=== PATIENT | male | born 1940 | race Caucasian/White ===

== ENCOUNTER 2018-09-21 00:14 | Day surgery (SDC) | payer MEDICARE ==
[~2018-09-21 00:14] MED LIST: ALBU90OI6; ASPI81CH PO; Advair Hfa 115-12 GM; COMBIVENT RESPIM4 GM; Cephalexin500 MG PO; ENTRESTO 24 MG1 EACH PO; FLUSAL1005; FURO40 PO; GUAIFENESIN1200 MG PO; K-Tab10 MEQ PO; METO25ER PO; MUCUS RELIEF C400 MG; Prednisone20 MG PO; Prinivil10 MG; Prinivil10 MG PO; SPIR25 PO; TRAM50; Xolair150 MG
[2018-09-21] MEDS ORDERED: ALBU90OI61 INH (10:02)
[2018-09-21] MEDS ORDERED: Lisinopril2.5 MG PO (10:03)
[2018-09-21] MEDS ORDERED: TORSE20 PO (10:04)
[2018-09-21] MEDS ORDERED: TIOT18 INH (10:04)
== END 2018-09-21 10:23 | disposition home or self-care (01) ==
LOC: ATC 00:14
DX: J45.909 Unspecified asthma, uncomplicated (principal); Z87.891 Personal history of nicotine dependence; Z88.1 Allergy status to other antibiotic agents; Z91.041 Radiographic dye allergy status; Z88.8 Allergy status to other drugs, medicaments and biological substances; Z88.0 Allergy status to penicillin
CPT/HCPCS: 96372; J2357

== ENCOUNTER 2018-12-14 00:19 | Day surgery (SDC) | payer MEDICARE ==
[~2018-12-14 00:19] MED LIST changes: +ALBU90OI61 INH; +Lisinopril2.5 MG PO; +TIOT18 INH; +TORSE20 PO
== END 2018-12-14 08:30 | disposition home or self-care (01) ==
LOC: ATC 00:19
DX: J45.909 Unspecified asthma, uncomplicated (principal); Z87.891 Personal history of nicotine dependence; Z88.1 Allergy status to other antibiotic agents; Z88.8 Allergy status to other drugs, medicaments and biological substances; Z91.041 Radiographic dye allergy status
CPT/HCPCS: 96372; J2357

== ENCOUNTER 2019-01-11 00:04 | Day surgery (SDC) | payer MEDICARE ==
[~2019-01-11 00:04] MED LIST changes: -ALBU90OI61 INH; -ASPI81CH PO; +Advair Hfa 115-12 GM INH; -FLUSAL1005; +LISI5 PO; -Lisinopril2.5 MG PO; -TIOT18 INH
== END 2019-01-11 08:28 | disposition home or self-care (01) ==
LOC: ATC 00:04
DX: J45.909 Unspecified asthma, uncomplicated (principal); Z88.8 Allergy status to other drugs, medicaments and biological substances; Z88.1 Allergy status to other antibiotic agents; Z79.899 Other long term (current) drug therapy
CPT/HCPCS: 96372; J2357

== ENCOUNTER → 2019-01-27 | Outpatient (CLI) | payer MEDICARE ==
[~2019-01-27] MED LIST changes: +ALBU90OI61 INH; +Aspir 8181 MG PO; +PRED20 PO; +SPIRIVA RESPIMAT4 GM INH; +TRAM50 PO; +TYLENOL PM PO
[2019-01-27 17:11] LABS: U Amphetamine Screen Not Detected; U Barbituate Screen Not Detected; U Benzodiazapine Screen Not Detected; U Buprenorphine Screen Not Detected; U Cannabinoids Screen Not Detected; U Cocaine Screen Not Detected; U Methadone Screen Not Detected; U Methamphetamine Screen Not Detected; U Opiates Screen DETECTED; U Oxycodone Screen Not Detected; U Phencyclidine Screen Not Detected; U Propoxyphene Screen Not Detected
== END | disposition home or self-care (01) ==
LOC: LAB SHORT 14:52 → LAB 14:52
PROVIDERS: Nurse Practitioner Family
DX: Z51.81 Encounter for therapeutic drug level monitoring (principal); Z79.899 Other long term (current) drug therapy

== ENCOUNTER 2019-02-08 00:10 | Day surgery (SDC) | payer MEDICARE ==
[~2019-02-08 00:10] MED LIST changes: -ALBU90OI61 INH; -Aspir 8181 MG PO; -PRED20 PO; -SPIRIVA RESPIMAT4 GM INH; -TRAM50 PO; -TYLENOL PM PO
[2019-02-08] MEDS ORDERED: PRED20 PO (07:50)
== END 2019-02-08 08:10 | disposition home or self-care (01) ==
LOC: ATC 00:10
DX: J45.909 Unspecified asthma, uncomplicated (principal); Z87.891 Personal history of nicotine dependence; Z88.1 Allergy status to other antibiotic agents; Z88.8 Allergy status to other drugs, medicaments and biological substances
CPT/HCPCS: 96372; J2357

== ENCOUNTER 2019-03-10 00:23 | Day surgery (SDC) | payer MEDICARE ==
[~2019-03-10 00:23] MED LIST changes: +PRED20 PO
== END 2019-03-10 09:12 | disposition home or self-care (01) ==
LOC: ATC 00:23
DX: J45.909 Unspecified asthma, uncomplicated (principal); Z87.891 Personal history of nicotine dependence; Z88.1 Allergy status to other antibiotic agents; Z91.041 Radiographic dye allergy status; Z88.8 Allergy status to other drugs, medicaments and biological substances; Z88.0 Allergy status to penicillin
CPT/HCPCS: 96372; J2357

== ENCOUNTER 2019-03-20 10:18 | Observation (INO) | payer MEDICARE ==
[~2019-03-20] VITALS: Ht 180.3 cm; Wt 78.9 kg
[2019-03-20 11:21] LABS: BASOPHILS ABSOLUTE AUTO 0.06 K/mm3 (0.00-0.23); BASOPHILS PERCENT AUTO 1 % (0-2); EOSINOPHILS ABSOLUTE AUTO 0.63 K/mm3 (0.00-0.68); EOSINOPHILS PERCENT AUTO 6 % (0-6); Hemoglobin 15.2 g/dL (13.5-17.5); IMMATURE GRAN ABSOLUTE AUTO 0.03 K/mm3 (0.00-0.10); IMMATURE GRAN PERCENT AUTO 0 % (0-1); LYMPHOCYTES ABSOLUTE AUTO 0.95 K/mm3 (0.84-5.20); LYMPHOCYTES PERCENT AUTO 9 % (21-46); MONOCYTES ABSOLUTE AUTO 1.08 K/mm3 (0.16-1.47); MONOCYTES PERCENT AUTO 11 % (4-13); Mean Corpuscular HGB 29.3 pg (26.0-34.0); Mean Corpuscular Volume 95 fL (80-100); Mean Platelet Volume 12.2 fL (9.1-12.4); NEUTROPHILS ABSOLUTE AUTO 7.45 K/mm3 (1.96-9.15); NEUTROPHILS PERCENT AUTO 73 % (41-73); Platelet Count 224 K/mm3 (150-400); RDW Coefficient Variation 14.6 % (11.7-14.2); RDW Standard Deviation 51.1 fL (35.1-46.3); Red Blood Cell Count 5.18 M/mm3 (4.30-5.90)
[2019-03-20 11:37] LABS: Albumin, Blood 3.7 g/dL (3.4-5.0); Bilirubin, Total 0.4 mg/dL (0.1-1.0); Bun/Creatinine Ratio 20.4 (12.0-20.0); Calcium, Blood 8.9 mg/dL (8.5-10.1); Creatinine, Blood 1.86 mg/dL (0.60-1.20); Globulin, Blood 3.6 g/dL (2.2-4.0); Magnesium, Blood 2.3 mg/dL (1.6-2.4); Potassium, Blood 4.2 mmol/L (3.5-5.5); Total Protein, Blood 7.3 g/dL (6.4-8.2); Troponin I 0.137 ng/mL (0.000-0.040)
[2019-03-20 11:40] LABS: Thyroid Stimulating Hormone 3.93 uIU/mL (0.360-4.800)
[2019-03-20] MEDS ORDERED: TRAM50 PO (12:31)
[2019-03-20] MEDS ORDERED: Aspir 8181 MG PO (12:31)
[2019-03-20] MEDS ORDERED: ALBU90OI61 INH (12:31)
[2019-03-20] MEDS ORDERED: SPIRIVA RESPIMAT4 GM INH (12:33)
--- NOTE | 2019-03-20 12:40 | NUR ---
PT NEW ADMISSION FROM ER. THIRD DEGREE HB NOTED WITH HR IN 20S-30S. EXTERNAL PACER PADS IN PLACE BUT NOT PACING DUE TO ASYMPTOMATIC. PT STATES HE FEELS FINE LONG HE DOESN'T TRY TO MOVE OUT OF BED. AT BEDSIDE.
[2019-03-20 13:20] LABS: International Normalized Ratio 0.97; Prothrombin Time Results 10.3 Sec (9.7-11.5)
--- NOTE | 2019-03-20 13:34 | NUR ---
DR STACY CAME TO SEE PT AND EDUCATED ABOUT PACE MAKER PLACEMENT. PT COMNTIUES TO BE ASYMPTOMATIC WITH HR PRESENTLY AT 28. EXTERNAL PACER PADS ON BUT NOT PACING. DR STACY INSTRUCTS TO NOT PACE UNLESS HEMODYNAMICALLY UNSTABLE. ALSO INSTRUCTS TO HAVE DOPAMINE AVAILABLE AT BEDSIDE. PHARMACY AWARE. DISCUSSED CONSENT WITH PT AND HIS . DENIES FURTHER NEEDS
--- NOTE | 2019-03-20 15:55 | NUR ---
PT REMAINS ASYMPOTOMATIC. ECTOPY NOTED AT 1548. CERTIFIED TECHNICIAN SPECIALIST AWARE. CALL TO [facility]ART CENTER FOR TIMING, STATED THEY WERE PREPPING THE TABLE. PT'S AT BEDSIDE, AWARE.
--- NOTE | 2019-03-20 16:19 | NUR ---
PT TAKEN TO HEART CENTER AT THIS TIME. SPOUSE AWARE
--- NOTE | 2019-03-20 19:00 | NUR ---
PT RETURNED FROM [facility]. DRESSING TO LEFT CHEST, HR IN 60S, PACER SPIKES NOTED. PT'S SAW PT WHEN HE RETURNED TO ROOM AND THEN WENT BACK HOME. NIGHT RN AT BEDSIDE
[2019-03-20] MEDS ORDERED: TYLENOL PM PO (20:21)
--- NOTE | 2019-03-20 20:33 | NUR ---
PATIENT BACK FROM COAGULATING BATH MIXER AT APROX 1920 PLACED ON ICU MONITORING, SHOWING 100% PACED. PCU STATUS POST PACEMAKER PLACEMENT. PATIENT C/O PAIN TO HIS UPPER BACK/NECK AREA CHRONIC IN NATURE. SURGICAL SITE TO LEFT CHEST WITH DRESSING CD&I, SLIGHTLY SWOLLEN, ICE PACK PLACED OVER SITE. HEATING PAD PLACED TO UPPER BACK. DOCTOR ROXI CALLED FOR PATIENT ROUTINE HS MEDICATIONS INCLUDING TRAMADOL FOR PAIN. SEE NEW ORDERS. PATIENT REQUESTING SOMETHING TO EAT, TORRIE PO WITHOUT DIFFICULTY.
--- NOTE | 2019-03-21 00:43 | NUR ---
PATIENT AWAKE C/O INCREASED PAIN TO HIS LEFT SHOULDER AND INCISION AREA. SITE HAS BRUISING AROUND SITE. SWELLING TO AREA REMAINS UNCHANGED. AREA SOFT BUT TENDER TO TOUCH. PATIENT VERBALIZED THAT THE PAIN IS INCREASED WITH THE ICE PACK. DOCTOR STACY NOTIFIED AND ORDER OBTAINED FOR FENTANYL IV PRN AND TO CONTINUE TRAMADOL ORDERED.
--- NOTE | 2019-03-21 06:09 | NUR ---
SUMMARY PATIENT SLEEPING OFF AND ON T/O THE NIGHT. AWAKENS TO SLIGHT STIMULI. LEFT ARM REMAINS IN IMMOBILIZER TO REMIND PATIENT TO NOT LIFT ARM AND ALSO TO GIVE SUPPORT WHEN UP AND MOVING. PATIENT CONTINUES TO HAVE PAIN TO LEFT SHOULDER AND CHEST, AREA AROUND INCISION IS SWOLLEN AND BRUISED, BUT SOFT. SLIGHT RED OOZING CONTAINED IN DRESSING. ICE OFF AND ON T/O THE NIGHT, PATIENT VERBALIZED THAT THE ICE INCREASED THE PAIN TO INCISION SITE. MONITOR SHOWING PACED RHYTHM WITH OCCASIONAL PVC AND OCCASIONAL SINUS WITH WIDE QRS HX OF RIGHT BBB. PATIENT SLIGHT SOB WITH AUDIBLE WHEEZING HEARD AFTER PATIENT AMBULATING IN ROOM AFTER CHEST X-RAY.
--- NOTE | 2019-03-21 07:30 | NUR ---
ASSUMED CARE: PT SITTING UPRIGHT IN CHAIR. LEFT ARM IN IMMOBILIZER. HR 60S, 100% VENTRICULAR PACING NOTED WITH SOME ATRIAL PACING. PACER SITE WITH SOME BLOOD ON DRESSING NOTED. BRUISING NOTED TO LEFT SIDE OF SITE, TENDERNESS WELL. DENIES OTHER NEEDS OR CONCERNS AT THIS TIME.
--- NOTE | 2019-03-21 11:03 | NUR ---
IV'S DC'D WNL. PT GIVEN DC INSTRUCTIONS FROM DR ALFONSO, DR STACY, HEART CENTER STAFF AND THIS RN. [employer] REP INTERROGATED PACER AND CXR HAS BEEN REVIEWED BY [facility]. DISCUSSED DC INSTRUCTIONS WITH PT WITH HANDOUTS PROVIDED. AMBULATORY UPON DC. DENIED FURTHER QUESTIONS OR CONCERNS.
== END 2019-03-21 10:57 | disposition home or self-care (01) ==
LOC: ER 10:18 → ICUW 10:19
PROVIDERS: Emergency Medicine; Internal Medicine Cardiovascular Disease; ADMIT Internal Medicine
DX: I44.2 Atrioventricular block, complete (principal); I25.10 Atherosclerotic heart disease of native coronary artery without angina pectoris; I12.9 Hypertensive chronic kidney disease with stage 1 through stage 4 chronic kidney disease, or unspecified chronic kidney disease; N18.9 Chronic kidney disease, unspecified; E78.5 Hyperlipidemia, unspecified; J44.9 Chronic obstructive pulmonary disease, unspecified; Z95.1 Presence of aortocoronary bypass graft; Z87.891 Personal history of nicotine dependence; Z88.1 Allergy status to other antibiotic agents; Z88.0 Allergy status to penicillin; Z88.8 Allergy status to other drugs, medicaments and biological substances; Z91.09 Other allergy status, other than to drugs and biological substances; Z91.018 Allergy to other foods; Z88.2 Allergy status to sulfonamides; Z79.899 Other long term (current) drug therapy; Z79.51 Long term (current) use of inhaled steroids; Z79.82 Long term (current) use of aspirin; Z79.52 Long term (current) use of systemic steroids
CPT/HCPCS: 33208; 36415; 71045; 71046; 80053; 83735; 84443; 84484; 85025; 85610; 86850; 86900; 86901; 87081; 93005; 93010; 94640; 94760; 96365; 96366; 96375; 99152; 99153; 99285-25; C1769; C1785; C1898; G0378; J0461; J1265; J1644; J2250; J3010; J3370; J7030; J7040

== ENCOUNTER 2019-04-05 00:08 | Day surgery (SDC) | payer MEDICARE ==
[~2019-04-05 00:08] MED LIST changes: +ALBU90OI61 INH; +Aspir 8181 MG PO; +SPIRIVA RESPIMAT4 GM INH; +TRAM50 PO; +TYLENOL PM PO
== END 2019-04-05 08:14 | disposition home or self-care (01) ==
LOC: ATC 00:08
DX: J45.909 Unspecified asthma, uncomplicated (principal); Z87.891 Personal history of nicotine dependence; Z79.899 Other long term (current) drug therapy; Z91.09 Other allergy status, other than to drugs and biological substances; Z88.1 Allergy status to other antibiotic agents; Z88.8 Allergy status to other drugs, medicaments and biological substances
CPT/HCPCS: 96372; J2357

== ENCOUNTER 2019-05-31 00:17 | Day surgery (SDC) | payer MEDICARE | END 2019-05-31 08:29 | disposition home or self-care (01) | LOC: ATC 00:17 | DX: J45.909 Unspecified asthma, uncomplicated (principal); I25.10 Atherosclerotic heart disease of native coronary artery without angina pectoris; I25.5 Ischemic cardiomyopathy; N18.3 Chronic kidney disease, stage 3 (moderate); E78.5 Hyperlipidemia, unspecified; Z87.891 Personal history of nicotine dependence; Z79.51 Long term (current) use of inhaled steroids; Z79.899 Other long term (current) drug therapy; Z88.1 Allergy status to other antibiotic agents; Z88.8 Allergy status to other drugs, medicaments and biological substances; Z91.041 Radiographic dye allergy status; Z91.018 Allergy to other foods; Z85.46 Personal history of malignant neoplasm of prostate; Z95.0 Presence of cardiac pacemaker; Z95.1 Presence of aortocoronary bypass graft; Z98.1 Arthrodesis status | CPT/HCPCS: 96372; J2357 ==

== ENCOUNTER 2019-06-28 00:15 | Day surgery (SDC) | payer MEDICARE | END 2019-06-28 08:20 | disposition home or self-care (01) | LOC: ATC 00:15 | DX: J45.909 Unspecified asthma, uncomplicated (principal); Z87.891 Personal history of nicotine dependence; Z79.51 Long term (current) use of inhaled steroids; Z79.899 Other long term (current) drug therapy; Z88.1 Allergy status to other antibiotic agents; Z88.8 Allergy status to other drugs, medicaments and biological substances; Z91.041 Radiographic dye allergy status; Z91.018 Allergy to other foods | CPT/HCPCS: 96372; J2357 ==

== ENCOUNTER 2019-07-26 00:10 | Day surgery (SDC) | payer MEDICARE | END 2019-07-26 07:59 | disposition home or self-care (01) | LOC: ATC 00:10 | DX: J45.909 Unspecified asthma, uncomplicated (principal); Z87.891 Personal history of nicotine dependence; Z79.51 Long term (current) use of inhaled steroids; Z79.52 Long term (current) use of systemic steroids; Z79.899 Other long term (current) drug therapy; Z88.1 Allergy status to other antibiotic agents; Z88.2 Allergy status to sulfonamides; Z88.8 Allergy status to other drugs, medicaments and biological substances; Z91.041 Radiographic dye allergy status; Z91.018 Allergy to other foods | CPT/HCPCS: 96372; J2357 ==

== ENCOUNTER 2019-09-20 00:04 | Day surgery (SDC) | payer MEDICARE | END 2019-09-20 08:10 | disposition home or self-care (01) | LOC: ATC 00:04 | DX: J45.909 Unspecified asthma, uncomplicated (principal); Z79.51 Long term (current) use of inhaled steroids; Z87.891 Personal history of nicotine dependence; Z88.0 Allergy status to penicillin; Z88.6 Allergy status to analgesic agent; Z91.041 Radiographic dye allergy status; Z88.8 Allergy status to other drugs, medicaments and biological substances; Z88.2 Allergy status to sulfonamides | CPT/HCPCS: 96372; J2357 ==

== ENCOUNTER 2019-10-18 01:51 | Day surgery (SDC) | payer MEDICARE | END 2019-10-18 08:14 | disposition home or self-care (01) | LOC: ATC 01:51 | DX: J45.909 Unspecified asthma, uncomplicated (principal); Z87.891 Personal history of nicotine dependence; Z88.1 Allergy status to other antibiotic agents; Z91.041 Radiographic dye allergy status | CPT/HCPCS: 96372; J2357 ==

== ENCOUNTER 2019-12-13 00:10 | Day surgery (SDC) | payer MEDICARE, OTHER | END 2019-12-13 11:11 | disposition home or self-care (01) | LOC: ATC 00:10 | DX: J45.909 Unspecified asthma, uncomplicated (principal); Z87.891 Personal history of nicotine dependence; Z88.2 Allergy status to sulfonamides; Z88.8 Allergy status to other drugs, medicaments and biological substances; Z88.1 Allergy status to other antibiotic agents; Z91.041 Radiographic dye allergy status | CPT/HCPCS: 96372; J2357 ==

== ENCOUNTER 2020-04-02 00:20 | Day surgery (SDC) | payer MEDICARE, OTHER ==
[~2020-04-02 00:20] MED LIST changes: +ADVAIR HFA 230-28 GM INH; +ALLO100 PO; +ALLOPURINOL100 M1 PO; -Advair Hfa 115-12 GM INH; +SPIRIVA RESPIMAT4 G3 INH; -SPIRIVA RESPIMAT4 GM INH
== END 2020-04-02 08:19 | disposition home or self-care (01) ==
LOC: ATC 00:20
DX: J45.909 Unspecified asthma, uncomplicated (principal); Z87.891 Personal history of nicotine dependence; Z88.0 Allergy status to penicillin; Z88.2 Allergy status to sulfonamides; Z88.8 Allergy status to other drugs, medicaments and biological substances; Z88.6 Allergy status to analgesic agent; Z88.1 Allergy status to other antibiotic agents; Z91.041 Radiographic dye allergy status
CPT/HCPCS: 96372; J2357

== ENCOUNTER 2020-05-01 00:29 | Day surgery (SDC) | payer MEDICARE, OTHER | END 2020-05-01 08:32 | disposition home or self-care (01) | LOC: ATC 00:29 | DX: J45.909 Unspecified asthma, uncomplicated (principal); I10 Essential (primary) hypertension; Z79.51 Long term (current) use of inhaled steroids; Z79.899 Other long term (current) drug therapy; Z88.1 Allergy status to other antibiotic agents; Z88.2 Allergy status to sulfonamides; Z88.8 Allergy status to other drugs, medicaments and biological substances; Z91.041 Radiographic dye allergy status | CPT/HCPCS: 96372; J2357 ==

== ENCOUNTER 2020-05-29 00:52 | Day surgery (SDC) | payer MEDICARE, OTHER | END 2020-05-29 08:05 | disposition home or self-care (01) | LOC: ATC 00:52 | DX: J45.909 Unspecified asthma, uncomplicated (principal); Z87.891 Personal history of nicotine dependence; Z79.51 Long term (current) use of inhaled steroids; Z79.899 Other long term (current) drug therapy; Z88.0 Allergy status to penicillin; Z88.1 Allergy status to other antibiotic agents; Z88.2 Allergy status to sulfonamides; Z88.8 Allergy status to other drugs, medicaments and biological substances; Z91.041 Radiographic dye allergy status; Z91.018 Allergy to other foods | CPT/HCPCS: 96372; J2357 ==

== ENCOUNTER 2020-06-26 00:11 | Day surgery (SDC) | payer MEDICARE, OTHER | END 2020-06-26 08:13 | disposition home or self-care (01) | LOC: ATC 00:11 | DX: J45.909 Unspecified asthma, uncomplicated (principal); Z87.891 Personal history of nicotine dependence; Z79.51 Long term (current) use of inhaled steroids; Z79.899 Other long term (current) drug therapy; Z88.0 Allergy status to penicillin; Z88.1 Allergy status to other antibiotic agents; Z88.8 Allergy status to other drugs, medicaments and biological substances; Z91.041 Radiographic dye allergy status | CPT/HCPCS: 96372; J2357 ==

== ENCOUNTER 2020-07-24 00:09 | Day surgery (SDC) | payer MEDICARE, OTHER | END 2020-07-24 08:23 | disposition home or self-care (01) | LOC: ATC 00:09 | DX: J45.909 Unspecified asthma, uncomplicated (principal); Z79.51 Long term (current) use of inhaled steroids; F17.220 Nicotine dependence, chewing tobacco, uncomplicated; Z88.1 Allergy status to other antibiotic agents | CPT/HCPCS: 96372; J2357 ==

== ENCOUNTER 2020-08-21 00:04 | Day surgery (SDC) | payer MEDICARE, OTHER | END 2020-08-21 08:32 | disposition home or self-care (01) | LOC: ATC 00:04 | DX: J45.909 Unspecified asthma, uncomplicated (principal); Z79.51 Long term (current) use of inhaled steroids | CPT/HCPCS: 96372; J2357 ==

== ENCOUNTER 2020-09-18 00:02 | Day surgery (SDC) | payer MEDICARE, OTHER | END 2020-09-18 08:09 | disposition home or self-care (01) | LOC: ATC 00:02 | DX: J45.909 Unspecified asthma, uncomplicated (principal); Z79.51 Long term (current) use of inhaled steroids; Z88.1 Allergy status to other antibiotic agents; Z88.0 Allergy status to penicillin; Z88.8 Allergy status to other drugs, medicaments and biological substances | CPT/HCPCS: 96372; J2357 ==

== ENCOUNTER 2020-10-16 00:01 | Day surgery (SDC) | payer MEDICARE, OTHER | END 2020-10-16 08:25 | disposition home or self-care (01) | LOC: ATC 00:01 | DX: J45.909 Unspecified asthma, uncomplicated (principal); M10.9 Gout, unspecified; Z88.0 Allergy status to penicillin; Z88.1 Allergy status to other antibiotic agents; Z88.2 Allergy status to sulfonamides; Z88.8 Allergy status to other drugs, medicaments and biological substances; Z91.041 Radiographic dye allergy status | CPT/HCPCS: 96372; J2357 ==

== ENCOUNTER 2020-11-13 00:49 | Day surgery (SDC) | payer MEDICARE, OTHER | END 2020-11-13 08:13 | disposition home or self-care (01) | LOC: ATC 00:49 | DX: J45.909 Unspecified asthma, uncomplicated (principal); Z88.1 Allergy status to other antibiotic agents; Z88.0 Allergy status to penicillin; Z88.8 Allergy status to other drugs, medicaments and biological substances; Z79.899 Other long term (current) drug therapy | CPT/HCPCS: 96372; J2357 ==

== ENCOUNTER → 2020-11-20 | Outpatient (CLI) | payer MEDICARE, OTHER ==
[~2020-11-20] MED LIST changes: +FLUC200 PO
[2020-11-20 13:29] LABS: Source, Urine Clean Catch
[2020-11-20 15:15] LABS: Appearance, Urine Clear (Clear); Bilirubin, Urine Neg (Neg); Blood, Urine 1+ (Neg); Color, Urine Yellow (P-Yellow); Glucose Qualitative, Urine Neg (Neg); Ketones, Urine Neg (Neg); Leukocyte Esterase, Urine 1+ (Neg); Nitrite, Urine Neg (Neg); Protein, Urine 1+ (Neg); Urobilinogen, Urine NORM (Normal)
[2020-11-20 15:23] LABS: Amorphous Light (0-Heavy); Bacteria Mod /hpf; Granular Casts 0-2 /lpf (0); Squamous Epithelial Cells Rare /hpf (Few)
== END | disposition home or self-care (01) ==
LOC: LAB SHORT 11:45 → LAB 11:45
PROVIDERS: Student in an Organized Health Care Education/Training Program
DX: R31.29 Other microscopic hematuria (principal)
CPT/HCPCS: 81001; 87086

== ENCOUNTER 2020-12-11 04:45 | Day surgery (SDC) | payer MEDICARE, OTHER ==
[~2020-12-11 04:45] MED LIST changes: -FLUC200 PO
[2020-12-11] MEDS ORDERED: FLUC200 PO (13:42)
== END 2020-12-11 13:40 | disposition home or self-care (01) ==
LOC: ATC 04:45
DX: J45.909 Unspecified asthma, uncomplicated (principal); M10.9 Gout, unspecified; Z79.52 Long term (current) use of systemic steroids; Z79.51 Long term (current) use of inhaled steroids; Z88.0 Allergy status to penicillin; Z88.8 Allergy status to other drugs, medicaments and biological substances
CPT/HCPCS: 96372; J2357

== ENCOUNTER 2021-01-08 03:04 | Day surgery (SDC) | payer MEDICARE, OTHER ==
[~2021-01-08 03:04] MED LIST changes: +FLUC200 PO
== END 2021-01-08 08:10 | disposition home or self-care (01) ==
LOC: ATC 03:04
DX: J45.909 Unspecified asthma, uncomplicated (principal); I50.9 Heart failure, unspecified; N18.9 Chronic kidney disease, unspecified; Z88.1 Allergy status to other antibiotic agents; Z88.8 Allergy status to other drugs, medicaments and biological substances; Z77.123 Contact with and (suspected) exposure to radon and other naturally occurring radiation; Z91.041 Radiographic dye allergy status; Z87.891 Personal history of nicotine dependence
CPT/HCPCS: 96372; J2357

== ENCOUNTER 2021-03-05 00:22 | Day surgery (SDC) | payer MEDICARE, OTHER | END 2021-03-05 08:03 | disposition home or self-care (01) | LOC: ATC 00:22 | DX: J45.909 Unspecified asthma, uncomplicated (principal); I25.10 Atherosclerotic heart disease of native coronary artery without angina pectoris; I50.9 Heart failure, unspecified; N18.9 Chronic kidney disease, unspecified; E78.00 Pure hypercholesterolemia, unspecified; M10.9 Gout, unspecified; Z79.52 Long term (current) use of systemic steroids; Z79.51 Long term (current) use of inhaled steroids; Z88.1 Allergy status to other antibiotic agents; Z88.0 Allergy status to penicillin; Z88.8 Allergy status to other drugs, medicaments and biological substances; Z85.46 Personal history of malignant neoplasm of prostate; Z95.1 Presence of aortocoronary bypass graft; Z87.891 Personal history of nicotine dependence | CPT/HCPCS: 96372; J2357 ==

== ENCOUNTER 2021-04-02 00:50 | Day surgery (SDC) | payer MEDICARE, OTHER | END 2021-04-02 08:11 | disposition home or self-care (01) | LOC: ATC 00:50 | DX: J45.909 Unspecified asthma, uncomplicated (principal); I50.9 Heart failure, unspecified; N18.9 Chronic kidney disease, unspecified; I25.10 Atherosclerotic heart disease of native coronary artery without angina pectoris; Z87.891 Personal history of nicotine dependence; Z88.0 Allergy status to penicillin; Z88.8 Allergy status to other drugs, medicaments and biological substances; Z91.041 Radiographic dye allergy status | CPT/HCPCS: 96372; J2357 ==

== ENCOUNTER 2021-04-30 04:22 | Day surgery (SDC) | payer MEDICARE, OTHER | END 2021-04-30 08:05 | disposition home or self-care (01) | LOC: ATC 04:22 | DX: J45.909 Unspecified asthma, uncomplicated (principal); I25.10 Atherosclerotic heart disease of native coronary artery without angina pectoris; I50.9 Heart failure, unspecified; N18.9 Chronic kidney disease, unspecified; Z88.0 Allergy status to penicillin; Z87.891 Personal history of nicotine dependence; Z88.1 Allergy status to other antibiotic agents; Z79.899 Other long term (current) drug therapy | CPT/HCPCS: 96372; J2357 ==

== ENCOUNTER → 2021-05-07 | Outpatient (CLI) | payer MEDICARE, OTHER | LOC: LAB 13:43 → LAB SHORT 13:43 | DX: D48.5 Neoplasm of uncertain behavior of skin (principal); D23.72 Other benign neoplasm of skin of left lower limb, including hip; L22 Diaper dermatitis; Z88.8 Allergy status to other drugs, medicaments and biological substances; Z91.041 Radiographic dye allergy status; Z88.1 Allergy status to other antibiotic agents; Z88.2 Allergy status to sulfonamides; Z91.018 Allergy to other foods | CPT/HCPCS: 88305; 88312 ==

== ENCOUNTER → 2021-06-20 | Outpatient (CLI) | payer MEDICARE, OTHER ==
[2021-06-20 17:38] LABS: Bun/Creatinine Ratio 26.4 (12.0-20.0); Calcium, Blood 9.4 mg/dL (8.5-10.1); Creatinine, Blood 1.74 mg/dL (0.60-1.20); Magnesium, Blood 2.3 mg/dL (1.6-2.4); Potassium, Blood 4.6 mmol/L (3.5-5.5)
[2021-06-20 17:42] LABS: Thyroid Stimulating Hormone 3.22 uIU/mL (0.360-4.800)
== END | disposition home or self-care (01) ==
LOC: LAB 16:49 → LAB SHORT 16:49
PROVIDERS: Internal Medicine Cardiovascular Disease
DX: R06.02 Shortness of breath (principal); I10 Essential (primary) hypertension
CPT/HCPCS: 80048; 83735; 83880; 84443

== ENCOUNTER 2021-07-25 06:52 | Inpatient (IN) | payer OTHER, MEDICARE ==
[~2021-07-25] VITALS: Ht 180.3 cm; Wt 68.7 kg
[2021-07-25 07:14] LABS: BASOPHILS ABSOLUTE AUTO 0.01 K/mm3 (0.00-0.23); BASOPHILS PERCENT AUTO 0 % (0-2); EOSINOPHILS PERCENT AUTO 0 % (0-6); Hematocrit 46.6 % (37.0-53.0); IMMATURE GRAN ABSOLUTE AUTO 0.07 K/mm3 (0.00-0.10); IMMATURE GRAN PERCENT AUTO 1 % (0-1); LYMPHOCYTES PERCENT AUTO 4 % (21-46); MONOCYTES ABSOLUTE AUTO 1.45 K/mm3 (0.16-1.47); MONOCYTES PERCENT AUTO 12 % (4-13); Mean Corpuscular Volume 90 fL (80-100); Mean Platelet Volume 11.6 fL (9.1-12.4); NEUTROPHILS ABSOLUTE AUTO 9.77 K/mm3 (1.96-9.15); NEUTROPHILS PERCENT AUTO 83 % (41-73); NRBC ABSOLUTE 0.04 K/mm3 (0.00-0.02); NRBC Auto 0.3 /100 WBC (0.0-0.2); Platelet Count 347 K/mm3 (150-400); RDW Coefficient Variation 20.8 % (11.7-14.2); RDW Standard Deviation 64.3 fL (35.1-46.3); Red Blood Cell Count 5.19 M/mm3 (4.30-5.90)
[2021-07-25 07:49] LABS: Troponin I 0.033 ng/mL (0.000-0.040)
[2021-07-25 07:53] LABS: Albumin, Blood 3.1 g/dL (3.4-5.0); Albumin/Globulin Ratio 0.7 (0.8-1.8); Bilirubin, Total 1.5 mg/dL (0.1-1.0); Calcium, Blood 9.7 mg/dL (8.5-10.1); Creatinine, Blood 2.37 mg/dL (0.60-1.20); Globulin, Blood 4.4 g/dL (2.2-4.0); Potassium, Blood 6.9 mmol/L (3.5-5.5); Total Protein, Blood 7.5 g/dL (6.4-8.2)
[2021-07-25 08:20] LABS: Influenza A, PCR NEGATIVE (NEGATIVE); Influenza B, PCR NEGATIVE (NEGATIVE); Resp Syncytial Virus, PCR NEGATIVE (NEGATIVE); SARS-Cov-2 (COVID-19) PCR, MMC NEGATIVE (NEGATIVE)
[2021-07-25 09:02] LABS: PCO2 Arterial 24.5 mmHg (35-45); PO2 Arterial 246 mmHg (80-100); pH Blood Arterial 7.42 (7.35-7.45)
[2021-07-25 14:45] LABS: Albumin, Blood 3.2 g/dL (3.4-5.0); Albumin/Globulin Ratio 0.8 (0.8-1.8); Bilirubin, Total 1.9 mg/dL (0.1-1.0); Bun/Creatinine Ratio 37.4 (12.0-20.0); Creatinine, Blood 2.35 mg/dL (0.60-1.20); Potassium, Blood 5.5 mmol/L (3.5-5.5); Total Protein, Blood 7.2 g/dL (6.4-8.2)
--- NOTE | 2021-07-25 17:38 | NUR ---
SHIFT SUMMARY PATIENT IS ALERT AND ORIENTED 3-4X. PATIENT WAS ADMITTED FOR ACUTE RESPIRATORY FAILURE. PATIENT IS ON 4 LITERS OXYGEN. PATIENT IS PLEASENT AND COOPERATIVE WITH CARE. PATIENTS CONTINUOUS BIOX DOES NOT CONSISTANTLY PUT OUT A GOOD READING DUE TO POOR PERFUSION. THIS RN HAS TRIED MULTIPLE FINGERS AND POSITIONS. SPOT CHECKED O2 SHOWS 95 SATS AND ABOVE CONSISTANTLY ON 4LITERS O2. WILL MONITOR UNTIL SHIFT CHANGE.
[2021-07-26 06:11] LABS: Albumin, Blood 3.1 g/dL (3.4-5.0); Albumin/Globulin Ratio 0.8 (0.8-1.8); Bilirubin, Total 3.3 mg/dL (0.1-1.0); Bun/Creatinine Ratio 34.8 (12.0-20.0); Calcium, Blood 9.5 mg/dL (8.5-10.1); Creatinine, Blood 2.93 mg/dL (0.60-1.20); Potassium, Blood 6.2 mmol/L (3.5-5.5); Total Protein, Blood 7.1 g/dL (6.4-8.2)
[2021-07-26 06:51] LABS: BASOPHILS ABSOLUTE AUTO 0.04 K/mm3 (0.00-0.23); BASOPHILS PERCENT AUTO 0 % (0-2); EOSINOPHILS PERCENT AUTO 0 % (0-6); Hematocrit 46.4 % (37.0-53.0); Hemoglobin 13.6 g/dL (13.5-17.5); IMMATURE GRAN ABSOLUTE AUTO 0.26 K/mm3 (0.00-0.10); IMMATURE GRAN PERCENT AUTO 1 % (0-1); LYMPHOCYTES ABSOLUTE AUTO 0.21 K/mm3 (0.84-5.20); LYMPHOCYTES PERCENT AUTO 1 % (21-46); MONOCYTES ABSOLUTE AUTO 1.77 K/mm3 (0.16-1.47); MONOCYTES PERCENT AUTO 8 % (4-13); Mean Corpuscular HGB Conc 29.3 g/dL (31.5-36.5); Mean Corpuscular Volume 92 fL (80-100); NEUTROPHILS ABSOLUTE AUTO 20.41 K/mm3 (1.96-9.15); NEUTROPHILS PERCENT AUTO 90 % (41-73); NRBC ABSOLUTE 0.11 K/mm3 (0.00-0.02); NRBC Auto 0.5 /100 WBC (0.0-0.2); Platelet Count 336 K/mm3 (150-400); RDW Coefficient Variation 21.3 % (11.7-14.2); RDW Standard Deviation 68.5 fL (35.1-46.3); Red Blood Cell Count 5.04 M/mm3 (4.30-5.90); White Blood Cell Count 22.69 K/mm3 (4.00-11.30)
[2021-07-26 07:09] LABS: HBSAG SCREEN Negative (Negative); HEP B CORE AB, TOT Negative (Negative); HEP C VIRUS AB <0.1 (0.0-0.9)
--- NOTE | 2021-07-26 08:00 | NUR ---
SHIFT ASSUMPTION: PATIENT ALERT AND ORIENTED. ABLE TO MOVE ALL EXTREMITIES. SKIN OVERALL VERY DUSKY AND CYANOTIC IN FINGERS AND TOES. PATIENT STATES HE IS NOT FEELING VERY WELL. ON 6L NASAL CANNULA SATING 96%. LUNGS SOUNDING SLIGHTLY COARSE AND DIMINISHED. SINUS RHYTHM WITH HR 80-90'S. BP STABLE. VERY FAINT PULSES. DENIES ABDOMINAL PAIN/NAUSEA ALTHOUGH PATIENT IS DRY HEAVYING AT TIMES. JUST WANTING TO DRINK WATER. BLOOD SUGAR DECREASED THIS AM. D50 GIVEN. SODIUM BICARB GTT INFUSING AT 100 ML/HR. CALL PLACED TO DR. NIETO TO UPDATE. DR. NIETO IN TO ASSESS. EKG AND BLADDER SCAN DONE. BLADDER SCAN SHOWING 212. DR. FALK IN EARLY TO ASSESS PATIENT WELL. TRANSFERS FOR ICU. DR. TIRADO CONSULTED. REPORTED OFF TO ICU NURSE.
--- NOTE | 2021-07-26 08:25 | NUR ---
SHIFT SUMMARY: AOX3. ILL APPEARING, CYANOTIC SKIN TONE, COOL TO THE TOUCH, WITH POOR PURFUSION, FAINT RADIAL AND PEDIAL PULSES. COOL TO THE TOUCH. HAS BEEN UNABLE TO KEEP ANYTHING DOWN ALL NIGHT, VOMIT HAS BEEN SMALL AMOUNTS OF BROWN LIKE BILE, QUESTION AT TIMES OF COFFEE GROUNDS, IF NOT VOMITING HE HAS BEEN DRY HEVING ALL NIGHT. ZOFRAN HAS BEEN GIVEN WITH MINIMAL RELEIF. UNABLE TO GET ORDER FOR ANTI-METICS FROM COACH CLEANER MD. DYSPNIC, NEEDING BREATHING TREATMENTS WITH MINIMAL RELEIF. INCREASE IN THIRST, BLOOD SUGARS WERE CHECKED ONLY TO HAVE TO LOW TO READ. MD NOTIFIED. 1/2 AMP OF DEXTROSE WAS GIVEN, ONLY TO GET THE SAME RESULTS. LAB AND RT BOTH HAD DIFFICULT TIMES DRAWING BLOOD DUE TO POOR PERFUSION. MD NOTIFED AGAIN ASKED FOR HER TO SET EYES ON THE PATIENT HAS HIS LIVER LEVELS HAVE DOUBLED, KIDNEY LABS HAVE WORSEN. POTASSIUM HAS INCREASED. ANION GAP 30. GAVE ANOTHER AMP OF D50 IN ATTEMPT TO GET HIS BLOOD SUGARS UP BUT LAST BLOOD SUGAR WAS IN THE 50'S. CONTINUES TO DRY HEVE WITH BILE. DR. STARKEY STOPPED BY FOR FEW MINUTES SAID SHE WILL PUT IN SOME ORDERS.VS VERY SOFT, INFORMED DAYSHIFT OF SITUATION ALONG WITH CHARGE NURSE INFORMING THAT THE PATIENT NEEDS TO BE TRANSFERRED.
[2021-07-26 08:34] LABS: Base Excess Venous -16.5 mmol/L; PCO2 Venous 28.3 mmHg (38-42); PO2 Venous 51.2 mmHg (38-42); pH Blood Venous 7.21 (7.34-7.37)
[2021-07-26 08:46] LABS: Calcium, Blood 9.2 mg/dL (8.5-10.1); Potassium, Blood 5.9 mmol/L (3.5-5.5)
--- NOTE | 2021-07-26 09:43 | NUR ---
PT ADMITTED TO ICU FROM MED FLOOR AT 0915. DR TIRADO CONSULTED BY DR NIETO, DR TIRADO AWARE PT IS IN UNIT. PT MOANING, DENIES C/O PAIN/SOB/NAUSEA. REQUEST WATER. SATS 93% ON 6L VIA N/C. EXTREMITIES DUSKY, FACE PALE BUT NOT DUSKY. VSS. PT TAKEN DOWN FOR STAT CT OF CHEST/ABD BY MANUAL ARTS TEACHER. BICARB GTT AT 100CC/HR.
[2021-07-26 10:01] LABS: Anti-Xa UFH, PHA Monitoring <0.10 IU/mL; International Normalized Ratio 3.06; Prothrombin Time Results 29.9 Sec (9.7-11.5)
--- NOTE | 2021-07-26 10:11 | NUR ---
PT BACK FROM CT. DR TIRADO AT BEDSIDE. OKAY FOR PT TO HAVE SIPS OF WATER. ECHO AND CARDIOLOGY CONSULTED. PT'S AT BEDSIDE. CERTIFIED SKI PATROLLER PLACING POWERGLIDE. HEPARIN GTT DC'D BY DR TIRADO INR >3. BS HAS DROPPED TO 83, WILL RECHECK IN 1 HR.
--- NOTE | 2021-07-26 11:46 | NUR ---
DIRECT CARE PROFESSIONAL AT BEDSIDE. PT C/O THROAT PAIN 03/21. PT DECLINED FENTANYL, STATING IT MADE HIS PAIN WORSE LAST NIGHT. 0.5MG IV DILAUDID ORDERED AND GIVEN. PT'S GLUCOSE 44 EARLIER, 1 AMP D50 GIVEN, WILL RECHECK SOON. LACTIC ACID 15.5, DR TIRADO NOTIFIED.
--- NOTE | 2021-07-26 12:40 | NUR ---
Echocardiogram completed.
[2021-07-26 16:13] LABS: Source, Urine Foley catheter
[2021-07-26 16:18] LABS: Appearance, Urine Hazy (Clear); Bilirubin, Urine Neg (Neg); Blood, Urine 5+ (Neg); Color, Urine Amber (P-Yellow); Glucose Qualitative, Urine Neg (Neg); Ketones, Urine 1+ (Neg); Leukocyte Esterase, Urine 1+ (Neg); Nitrite, Urine Neg (Neg); Protein, Urine 3+ (Neg); Specific Gravity, Urine 1.025 (1.003-1.022); Urobilinogen, Urine NORM (Normal)
[2021-07-26 16:20] LABS: Amorphous Mod (0-Heavy); Bacteria Mod /hpf; Mucus Light (0-Heavy); Squamous Epithelial Cells Few /hpf (Few)
--- NOTE | 2021-07-26 17:10 | NUR ---
DR FALK CALLED, GIVEN FULL UPDATE. BLADDER SCAN COMPLETED, 80CC. REYES CATH PLACED PER DR FALK, PT TORRIE WELL. DOBUTAMINE AND LEVOPHED STARTED PER DR PEREZ. DOBUTAMINE TITRATED UP TO 2MCG, LEVOPHED TITRATED UP TO 3MCG. BUMEX TO BE GIVEN 2HRS AFTER DOBUTAMINE/LEVOPHED STARTED PER DR FALK; THIS WAS RELAYED TO DR PEREZ. TITRATING FOR A MAP GREATER THAN 65/70. PT HAS REMAINED COMFORTABLE AFTER DILAUDID 1MG EARLIER THIS SHIFT. PT SLEEPING, AWAKENS TO VOICE. SATS 96% ON RA PT PULLED 02 OFF AND IS REFUSING TO WEAR IT AT THIS TIME. PICC LINE PLACED OVER POWERGLIDE W/O DIFF, PT TORRIE PROCEDURE WELL.
--- NOTE | 2021-07-26 19:07 | NUR ---
LEVOPHED/DOBUTAMINE BOTH AT 3MCG. MAP >65. ONLY 15CC U/O. DR FALK UPDATED, ANOTHER 2MG BUMEX IV ORDERED. PT SLEEPING COMFORTABLY. SATS >90% ON 4L VIA N/C.
--- NOTE | 2021-07-26 19:30 | NUR ---
ASSUMED CARE PATIENT LYING IN BED WITH EYES CLOSED. NC IN PLACE @ 2LPM W/ SPO2 IN MID 90'S. FOREHEAD PROBE IN PLACE. REYES PATENT AND DRAINING TO GRAVITY. SODIUM BICARB @ 100ML/HR, LEVOPHED INF @ 3MCG/MIN AND DOBUTAMINE INF @ 3MCG/KG/MIN INTO CAITLIN PICC LINE. 20G IN LT AC SALINE LOCKED. PATIENT TRACKS TO SOUND AND PLEASANTLY GREETS STAFF UPON ENTERING THE ROOM. REPORT COMPLETED W/ DAYSHIFT LARRY.
--- NOTE | 2021-07-27 00:44 | NUR ---
AGITATION PATIENT BECAME AGITATED AND ATTEMPTED TO LEAVE THE BED. THE PATIENT WAS TOLD HE NEEDED TO STAY IN BED FOR SAFETY REASONS AND BECAME MORE AGITATED YELLING AT STAFF STATING "I CAN GET OUT OF THE BED IF I WANT DAMMIT" AND "I DON'T EVEN KNOW WHY I AM HERE, IF I AM GOING TO HERE THEN I SHOULD KNOW WHY". PATIENT WAS EASILY CONSOLED BY STAFF AND HELPED BACK IN BED. ATIVAN 0.5MG IV GIVEN TO PATIENT TO HELP WITH ANXIETY AND AGITATION. PATIENT WAS REORIENTED TO HOSPITAL VISIT AND USE OF CALL LIGHT. BED ALARM SET.
[2021-07-27 03:22] LABS: BASOPHILS ABSOLUTE AUTO 0.05 K/mm3 (0.00-0.23); BASOPHILS PERCENT AUTO 0 % (0-2); EOSINOPHILS PERCENT AUTO 0 % (0-6); Hematocrit 38.9 % (37.0-53.0); Hemoglobin 12.2 g/dL (13.5-17.5); IMMATURE GRAN ABSOLUTE AUTO 0.21 K/mm3 (0.00-0.10); IMMATURE GRAN PERCENT AUTO 1 % (0-1); LYMPHOCYTES ABSOLUTE AUTO 0.03 K/mm3 (0.84-5.20); LYMPHOCYTES PERCENT AUTO 0 % (21-46); MONOCYTES ABSOLUTE AUTO 0.65 K/mm3 (0.16-1.47); MONOCYTES PERCENT AUTO 3 % (4-13); Mean Corpuscular HGB 27.2 pg (26.0-34.0); Mean Corpuscular HGB Conc 31.4 g/dL (31.5-36.5); NEUTROPHILS ABSOLUTE AUTO 24.63 K/mm3 (1.96-9.15); NEUTROPHILS PERCENT AUTO 96 % (41-73); NRBC ABSOLUTE 0.23 K/mm3 (0.00-0.02); NRBC Auto 0.9 /100 WBC (0.0-0.2); Platelet Count 236 K/mm3 (150-400); RDW Coefficient Variation 20.2 % (11.7-14.2); RDW Standard Deviation 61.1 fL (35.1-46.3); Red Blood Cell Count 4.49 M/mm3 (4.30-5.90); White Blood Cell Count 25.57 K/mm3 (4.00-11.30)
[2021-07-27 03:26] LABS: Mean Corpuscular Volume 87 fL (80-100)
[2021-07-27 03:39] LABS: International Normalized Ratio 3.47; Prothrombin Time Results 33.6 Sec (9.7-11.5)
[2021-07-27 05:33] LABS: Magnesium, Blood 2.9 mg/dL (1.6-2.4)
[2021-07-27 05:50] LABS: Albumin/Globulin Ratio 0.9 (0.8-1.8); Bun/Creatinine Ratio 33.6 (12.0-20.0); Creatinine, Blood 3.48 mg/dL (0.60-1.20); Globulin, Blood 3.2 g/dL (2.2-4.0); Phosphorus, Blood 7.1 mg/dL (2.5-4.9); Total Protein, Blood 6.2 g/dL (6.4-8.2)
[2021-07-27 05:51] LABS: Calcium, Blood 6.7 mg/dL (8.5-10.1)
--- NOTE | 2021-07-27 06:24 | NUR ---
SHIFT SUMMARY PATIENT BECAME INCREASINGLY CONFUSED T/O SHIFT; REQUIRED TWO DOSES OF ATIVAN 0.5MG IV. PULLS AT LINES, CATHETER, TAKES GOWN OFF AND ATTMEPTS TO EXIT THE BED. BED ALARM IS ON AND PATIENT IS REORIENTED WHEN THESE EPISODES OCCUR. WHEN PATIENT IS ORIENTED HE CAN REMEMBER HE IS AT THE HOSPITAL AND KNOWS HIS NAME. HE ASKS WHY HE IS HERE FREQUENTLY. LEVOPHED INCREASED TO 4MCG/MIN TO KEEP MAPS GREATER THAN 65, DOBUTAMINE REMAINES AT 3MCG/KG/MIN AND SODIUM BICARB @ 100ML/HR. RHYTHM REMAINS 100% PACED. OS DECREASED FROM 4LPM TO 2LPM VIA NC W/ SPO2 IN MID OT UPPER 90'S. REYES STILL PATENT AND DRAINED 550ML OF DARK YELLOW CLEAR URINE. LABS CAME BACK THIS MORNING SHOWING CALCIUM OF 6.7; DR. FALK ORDERED CALCIUM GLUCONATE TO BE GIVEN. NO OTHER CHANGES DURING SHIFT.
--- NOTE | 2021-07-27 07:45 | NUR ---
CARE OF PT ASUMED AT 0700. PT SLEEPING IN BED, AWAKENS SOMEWHAT TO VOICE, ABLE TO STATE NAME AND PLACE. PT RESTLESS IN SLEEP AND TAKES OFF GOWN, LEADS, AND O2. PERIPHERAL PERFUSION IMPROVED FROM YESTERDAY. DOBUTAMINE GTT AT 3MCG, LEVOPHED GTT AT 4MCG. DR FALK IN THIS AM. BICARB GTT CHANGED TO NS AT 75CC/HR, WILL POSSIBLY START CLINIMIX TOMORROW PT UNABLE TO EAT AT THIS TIME. BUMEX TO BE GIVEN AT 1400 TODAY. SATS 99% ON 2L. PT 100% PACED IN THE 90'S. MAP > 65.
--- NOTE | 2021-07-27 07:57 | NUR ---
PT WOKE UP IN PANIC PULLING EVERYTHING OFF, PULLING HARD ON PICC LINE. UNABLE TO REDIRECT PT. PT YELLING "PULL IT OFF, PULL IT OFF!" WITH EYES CLOSED. SOFT WRIST RESTRAINTS PLACED. PT SLEEPING ONCE AGAIN.
--- NOTE | 2021-07-27 08:57 | NUR ---
24 HOUR URINE STARTED AT 0855.
--- NOTE | 2021-07-27 09:02 | NUR ---
DR TIRADO IN, GIVEN UPDATE.
--- NOTE | 2021-07-27 11:43 | NUR ---
RESTRAINTS REMOVED AT 1000. PT REMAINS CONFUSED BUT ABLE TO RE-DIRECT HIM. BED ALARM ON. CLOSE MONITORING OF PT. PT'S CALLED AND GIVEN UPDATE. WILL NOT LIMIT VISITING HOURS PROGNOSIS IS VERY POOR, THIS DISCUSSED W EQUITY ANALYST AND DR TIRADO.
--- NOTE | 2021-07-27 17:06 | NUR ---
PT AWAKE, MORE ALERT AND AWARE, LESS CONFUSED, YET STILL REMOVES O2, LEADS, GOWN. PT STATED HE DIDNT WANT TO LIVE LIKE THIS AND WAS READY TO . PT STATED HE HAD TWO CHILDREN OUT OF STATE, BUT DIDNT THINK THEY WOULD MAKE IT DOWN TO SEE HIM. PALLIATIVE CARE UPDATED. PT'S CALLED TO GIVE UPDATE. SHE WILL BE IN IN AM.
--- NOTE | 2021-07-27 18:26 | NUR ---
PT MILDLY CONFUSED, VERY COOPERATIVE, EASY TO RE-DIRECT, VERY RESTLESS. DOBUTAMINE HAS REMAINED AT 3MCG, LEVOPHED HAS REMAINED AT 4MCG FOR ENTIRE SHIFT. BP STABLE AFTER BUMEX, W ADEQUATE U/O THIS SHIFT.
--- NOTE | 2021-07-27 19:24 | NUR ---
Pt aggitated and pulling at patches, pt frail ashen and has brief periods of interaction. pt on pressors and cardiac meds. pt transitioning decided not to come in today want to come in morning. crying on phone with nurse. will transition to comfort tomorrow. Nurse advised that pt may not survive the night. Review with nursing some medication for symtom control pt kps 20%.
--- NOTE | 2021-07-27 19:30 | NUR ---
ASSUMED CARE PATIENT LYING IN BED W/ EYES CLOSED. 2LPM VIA NC IN PLACE W/ SPO2 MID 90'S. GOWN IS DISHEVELED AND OFF OF ONE ARM. BLANKETS ARE PUSHED DOWN TO FEET. PATIENT IS EASILY AROUSABLE AND TRACKS TO SOUND. WATER IS ON BEDSIDE TABLE. REYES PATENT AND DRAINING TO GRAVITY IN BUCKET OF ICE FOR 24HR URINE SAMPLE. 100% PACED W/ RATE IN 100'S. DOBUTAMINE @ 3MCG/KG/MIN AND LEVOPHED @ 4MCG/MIN. MAPS GREATER THAN 65. REPORT COMPLETED WITH SANTA JUAREZ.
--- NOTE | 2021-07-27 22:30 | NUR ---
BESIDE SWALLOW EVAL PATIENT PASSED BEDSIDE SWALLOW EVAL USING WATER. SEE THAT INTERVENTION. TRANSITIONED TO PUDDING, BUT AFTER A FEW BITES HE BEGAN COUGHING WITH WET GURGLING SOUND. ADVISED PATIENT THAT HE CANNOT HAVE PUDDING AT THIS TIME D/T THIS REACTION AND WE WILL READDRESS IN THE MORNING. PATIENT WAS AGREEABLE.
[2021-07-28 03:26] LABS: BASOPHILS ABSOLUTE AUTO 0.02 K/mm3 (0.00-0.23); BASOPHILS PERCENT AUTO 0 % (0-2); EOSINOPHILS ABSOLUTE AUTO 0.01 K/mm3 (0.00-0.68); EOSINOPHILS PERCENT AUTO 0 % (0-6); Hematocrit 39.5 % (37.0-53.0); Hemoglobin 12.3 g/dL (13.5-17.5); IMMATURE GRAN ABSOLUTE AUTO 0.16 K/mm3 (0.00-0.10); IMMATURE GRAN PERCENT AUTO 1 % (0-1); LYMPHOCYTES ABSOLUTE AUTO 0.05 K/mm3 (0.84-5.20); LYMPHOCYTES PERCENT AUTO 0 % (21-46); MONOCYTES PERCENT AUTO 3 % (4-13); Mean Corpuscular HGB 26.6 pg (26.0-34.0); Mean Corpuscular HGB Conc 31.1 g/dL (31.5-36.5); Mean Corpuscular Volume 86 fL (80-100); Mean Platelet Volume 11.7 fL (9.1-12.4); NEUTROPHILS ABSOLUTE AUTO 18.65 K/mm3 (1.96-9.15); NEUTROPHILS PERCENT AUTO 96 % (41-73); Platelet Count 182 K/mm3 (150-400); RDW Coefficient Variation 20.8 % (11.7-14.2); RDW Standard Deviation 60.7 fL (35.1-46.3); Red Blood Cell Count 4.62 M/mm3 (4.30-5.90); White Blood Cell Count 19.49 K/mm3 (4.00-11.30)
[2021-07-28 03:42] LABS: International Normalized Ratio 2.64
[2021-07-28 03:54] LABS: Magnesium, Blood 2.3 mg/dL (1.6-2.4); Uric Acid, Blood 16.7 mg/dL (3.5-7.2)
[2021-07-28 03:55] LABS: Albumin, Blood 2.9 g/dL (3.4-5.0); Albumin/Globulin Ratio 0.9 (0.8-1.8); Bilirubin, Direct 2.7 mg/dL (0.0-0.3); Bilirubin, Total 3.7 mg/dL (0.1-1.0); Bun/Creatinine Ratio 35.7 (12.0-20.0); Calcium, Blood 6.8 mg/dL (8.5-10.1); Creatinine, Blood 3.33 mg/dL (0.60-1.20); Globulin, Blood 3.4 g/dL (2.2-4.0); Phosphorus, Blood 4.9 mg/dL (2.5-4.9); Potassium, Blood 4.4 mmol/L (3.5-5.5); Total Protein, Blood 6.3 g/dL (6.4-8.2)
--- NOTE | 2021-07-28 06:23 | NUR ---
SHIFT SUMMARY PATIENT MAINTAINED 2LPM VIA NC W/ SPO2 GREATER THAN 90%. 24HR URINE STILL BEING COLLECTED. REYES HAD 1550ML OUT. REYES AND COLLECTION JUG ON ICE UNDER BED. PATIENT REMAINED PLEASANTLY CONFUSED THROUGH SHIFT. ABLE TO BE REORIENTED EASILY. BEDSIDE SWALLOW EVAL COMPLETED AND PASSED, BUT FAILED WITH PUDDING. SEE NOTE ON BEDSIDE SWALLOW EVAL. NO BM THIS SHIFT, ALTHOUGH BT ARE HYPERACTIVE T/O. PATIENT HAD A 4 BEAT RUN OF VTACH THIS MORNING AND HR PERIODICALLY INCREASED TO 120'S THEN RETURNED TO 90'S-100'S. NO OTHER MAJOR CHANGES DURING SHIFT.
--- NOTE | 2021-07-28 08:40 | NUR ---
ASSUMED CARE / DR TOBAR: REPORT RECEIVED FROM LOAN Jaramillo RN. ASSUMED CARE OF THIS PT AT APPROX 0700. ON ASSESSMENT, THE PT IS AWAKE, ALERT TO SELF, FOLLOWING DIRECTIONS & PLACE. HE EXPRESSES FRUSTRATION W/ STAFF & FEELING LIKE WE ARE "STARVING" HIM & TREATING HIM "TERRIBLY" BY NOT ALLOWING HIM TO EAT AT THIS TIME - BEDSIDE SWALLOW EVAL FAILED DURING PEER FINANCIAL COUNSELOR. LS ARE CLEAR, DIM IN BASES. PT OCCASIONALLY HAVING MOIST COUGH THAT IS PRODUCTIVE FOR THICK YELLOWISH SPUTUM. PT ON 2L NC W/ O2 SATS > 92%. MONITOR SHOWS V-PACED RHYTHM W/ HR 100-120s, HYPOTENSIVE W/ DOBUTAMINE AT 3 MCG/KG/MIN & LEVOPHED AT 4 MCG/KG/MIN. PT NPO EXCEPT WATER AT THIS TIME, WHICH HE TOLERATES WELL. REYES PATENT/ DRAINING DARK YELLOW URINE. 24 HR URINE SPECIMEN COMPLETED AT 0855 & TAKEN TO LAB. SKIN CONDITION OVERALL INTACT, FRAGILE. Q2H REPOSITIONING TO MAINTAIN SKIN INTEGRITY. DR TOBAR AT BEDSIDE THIS AM TO EVAL PT. DISCUSSED FAILED SWALLOW EVALUATION DURING PEER FINANCIAL COUNSELOR, REQUEST FOR ST EVAL & TX, ORDERS PLACED. WILL CONTINUE TO MONITOR & UPDATE NEEDED.
--- NOTE | 2021-07-28 10:20 | NUR ---
DR TOBAR: THE PT's IS AT BEDSIDE THIS AM TO DISCUSS POC FOR THIS PT. DR TOBRA HAS BEEN NOTIFIED & IS NOW AT BEDSIDE TO SPEAK W/ THE PT & HIS , AVEL. THEY HAVE DISCUSSED PT's OVERALL PROGNOSIS. BECAUSE HIS RENAL FUNCTION IS IMPROVING, DR TOBAR FEELS THAT WE MAY BE ABLE TO GET HIM OFF OF DOBUTAMINE & LEVOPHED WITHIN THE NEXT COUPLE DAYS. IF SPEECH EVAL STS THE PT SHOULD BE NPO, DR TOBAR HAS SPOKEN AT LENGTH W/ THE PT's ABOUT RISKS VS BENEFITS OF HAVING PO INTAKE & DETERMINED THAT HE WILL BE ALLOWED TO HAVE A MODIFIED DIET OF SOME KIND.
[2021-07-28 10:40] LABS: Protein, Urine Quantitative 29.9 mg/dL (0.0-11.9)
--- NOTE | 2021-07-28 11:50 | NUR ---
DR MARTE: PROVIDER AT BEDSIDE TO CEASAR PT & HAS HAD LENGTHY CONVERSATIONS W/ THE PT & HIS , AVEL, REGARDING THE PLAN OF CARE. HE IS ADAMENT THAT HE WOULD LIKE TO EAT & THE RISKS OF THIS WHILE THE PT IS STILL A LIMITED CODE & OKAY FOR INTUBATION. THE PT IS AGREEABLE TO NOT BEING INTUBATED & IS NOW A FULL DNR. HE & HIS ARE UNDERSTANDING OF RISKS R/T PO INTAKE, THEY WOULD LIKE THE PT TO BE ABLE TO EAT DESPITE THIS. DIET ORDER WILL BE ADJUSTED TO PUREE PER PT REQUEST R/T POOR DENTITION.
--- NOTE | 2021-07-28 16:49 | NUR ---
review of pt in ICU rounds in to visit. Some slight imporvement. pt still frail and precarious. plan is to stay the course made him DNR and let him eat. His kps score is 30% plan is hopsice transition.
--- NOTE | 2021-07-28 17:37 | NUR ---
got pt one of the neck pillows for his tailbone. more active todaya nd more sorness will continue to monitor.
--- NOTE | 2021-07-28 17:40 | NUR ---
SHIFT SUMMARY: NO ACUTE CHANGES SINCE PRIOR UPDATES. PT REMAINS A&O TO SELF, FOLLOWING DIRECTIONS, PLACE & FAMILY. HE IS MUCH MORE PLEASANT THIS AFTERNOON & RESPONDING BETTER TO STAFF MEMBERS. CURRENTLY SITTING UP IN CHAIR AFTER 2 PERSON MAX ASSIST, PT STS FEELING GENERALLY WEAK & STS "THESE LEGS SURE AREN'T WORKING WELL TODAY." LS ARE DIM IN BASES, PT CONTINUES TO HAVE A PRODUCTIVE COUGH W/ SMALL AMNTS THICK YELLOW-GREEN SPUTUM PRODUCTION NOTED. HE IS NOW ON RA W/ O2 SATS > 92%. MONITOR SHOWS V-PACED RHYTHM W/ HR 100-120s, LEVOPHED INFUSING AT 2 MCG/MIN & DOBUTAMINE ON SB SINCE APPROX 1155. THE PT HAS NO GI COMPLAINTS & IS HAPPY TO BE ALLOWED TO HAVE PO INTAKE - SEE PRIOR RN NOTES & DR MARTE NOTE. HE CONTINUES TO HAVE INCREASED COUGHING AFTER TAKING PO INTAKE BUT HAS A STRONG COUGH & IS ABLE TO CLEAR SECRETIONS/ FOOD WELL. REYES PATENT/ DRAINING DARK YELLOW URINE. SKIN CONDITION OVERALL INTACT, FRAGILE. PT HAS C/O SOME PAIN TO TAILBONE THIS EVENING. Q2H REPOSITIONING TO MAINTAIN SKIN INTEGRITY. WILL CONTINUE TO MONITOR & REPORT OFF TO ONCOMING RN.
--- NOTE | 2021-07-28 19:05 | NUR ---
Assumed care. Report received from andra RN. Pt resting quietly in bed, on oxygen via NC 2 L/min. Pt alert and oriented, denies any pain or needs at this time. Chand catheter in place. Will continue to monitor.
[2021-07-29 04:04] LABS: Hemoglobin 12.7 g/dL (13.5-17.5); Mean Corpuscular Volume 87 fL (80-100); Mean Platelet Volume 11.7 fL (9.1-12.4); NRBC ABSOLUTE 0.21 K/mm3 (0.00-0.02); NRBC Auto 1.7 /100 WBC (0.0-0.2); Platelet Count 155 K/mm3 (150-400); RDW Coefficient Variation 21.1 % (11.7-14.2); RDW Standard Deviation 63.5 fL (35.1-46.3); Red Blood Cell Count 4.71 M/mm3 (4.30-5.90)
[2021-07-29 04:30] LABS: Albumin/Globulin Ratio 0.9 (0.8-1.8); Bilirubin, Total 3.8 mg/dL (0.1-1.0); Bun/Creatinine Ratio 36.5 (12.0-20.0); Calcium, Blood 7.8 mg/dL (8.5-10.1); Creatinine, Blood 3.37 mg/dL (0.60-1.20); Globulin, Blood 3.5 g/dL (2.2-4.0); Magnesium, Blood 2.3 mg/dL (1.6-2.4); Phosphorus, Blood 5.5 mg/dL (2.5-4.9); Potassium, Blood 4.7 mmol/L (3.5-5.5); Total Protein, Blood 6.5 g/dL (6.4-8.2)
--- NOTE | 2021-07-29 06:22 | NUR ---
Shift summary. Pt continues in bed. Alert, confused at times. On 02 via NC, 2 L/min. PICC in CAITLIN, IV pumps running Levophed 2 mcg/min, NS 75 ml/hr. Chand catheter in place, 875 mls out this shift. Pt restless during night, up several times to bedside commode. Pt was able to transfer easily with one staff member assisting. See shift assessment for further details. Will continue to monitor and report off to dayshift RN.
--- NOTE | 2021-07-29 08:30 | NUR ---
ASSUMED CARE: REPORT RECEIVED FROM JONO Jaramillo RN. ASSUMED CARE OF THIS PT AT APPROX 0700. ON ASSESSMENT, THE PT IS AWAKE, ORIENTED TO SELF & FOLLOWING DIRECTIONS. HE IS FORGETFUL TO PLACE & SURROUNDINGS, NEEDING SOME REORIENTATION. LS ARE COARSE/ WHEEZING T/O, PT CONTINUES TO HAVE PRODUCTIVE COUGH W/ SMALL AMNTS THICK GREEN-YELLOW SPUTUM NOTED. PT CURRENTLY ON RA W/ O2 SATS > 92%. MONITOR SHOWS V-PACED RHYTHM W/ HR 100-110s, LEVOPHED PLACED ON STANDBY AT 0830. PT HAS NO GI COMPLAINTS, CONTINUES HAVING COUGHING EPISODES AFTER TAKING PO FOOD. REYES PATENT/ DRAINING DARK YELLOW URINE. SKIN CONDITION OVERALL INTACT, PT REPOSITIONS SELF IN BED W/ MIN ASSIST. WILL CONTINUE TO MONITOR & UPDATE NEEDED.
--- NOTE | 2021-07-29 08:45 | NUR ---
DR TOBAR: PROVIDER WOULD LIKE TO DISCUSS THE TOPIC OF HOSPICE W/ THE PT & HIS . HE WOULD LIKE NOTIFIED WHEN PT's , AVEL, COMES TO VISIT TODAY & PLANS TO SEE THE PT AT THAT TIME. WILL STATUS CHANGE PT THIS AFTERNOON IF HE IS ABLE TO REMAIN OFF LEVOPHED W/ BP STABLE.
--- NOTE | 2021-07-29 12:26 | NUR ---
COMFORT CARE: DR TOBAR HAS BEEN AT BEDSIDE W/ THE PT, WELL PALLIATIVE CARE RN, BRIAN Joshi. THE PT & HIS HAVE DISCUSSED COMFORT CARE & HOSPICE OPTIONS FOR THIS PT & WOULD LIKE TO PROCEED W/ COMFORT CARE MEASURES AT THIS TIME. IF THE PT CONTINUES TO DO WELL IN APPROX 24 HRS, HE MAY BE D/C'd HOME ON HOSPICE.
--- NOTE | 2021-07-29 13:38 | NUR ---
Met with pt, the pt's and Dr. Barlow. Due to pt's poor prognosis, pt and his agree that hospice is the best option for the pt at this point. We talked at great length regarding what hospice is, and what services they provide. Dr. Barlow would like to keep pt until tomorrow, then discharge home with hospice.
--- NOTE | 2021-07-29 17:29 | NUR ---
SHIFT SUMMARY: NO ACUTE CHANGES SINCE PRIOR UPDATES. PT REMAINS OVERALL A&O, FORGETFUL AT TIMES. BED & TAB ALARMS IN USE R/T PT IMPULSIVITY. HE OVERALL DENIES DISCOMFORT, HAS PERSISTANT PRODUCTIVE COUGH. IS ABLE TO MAKE NEEDS KNOWN BUT DOES NOT CONSISTENTLY USE CALL LIGHT. WILL CONTINUE TO MONITOR & REPORT OFF TO ONCOMING RN.
--- NOTE | 2021-07-29 19:18 | NUR ---
ASSUMPTION OF CARE RECEIVED REPORT FROM [place] JUAREZ AT 1900. PATIENT IN BED, A/O. DENIED NEEDS OR DISCOMFORTS. ORIENTED PATIENT TO CALL LIGHT. REVIEWED ORDERS, WILL TREAT PRESCRIBED FOR COMFORT.
--- NOTE | 2021-07-29 21:24 | NUR ---
RN TO ROOM TO ROUND ON PATIENT. PATIENT IN BED, USING CELL PHONE STATED HE LOST HIS WATCH. FOUND WATCH IN BED NEXT TO PATIENT AND FOUND PICC LINE REMOVED FROM RIGHT ARM LAYING IN PATIENT'S LAP. ASKED PATIENT WHAT HAPPENED, PATIENT STATED ANOTHER NURSE PULLED IT OUT HOURS AGO. THIS RN STATED IT WAS STILL INTACT 15 MINUTES AGO ON PREVIOUS ROUNDING, PATIENT THEN STATED HE MUST HAVE PULLED IT OUT BUT FORGOT AND SOMETIMES DOESN'T REMEMBER WHAT HE DOES. LINE WAS INTACT VERIFIED BY 2 RNS. SITE TO TRISH RAMON. WRAPPED AND PRESSURE APPLIED. NO CONCERNS AT THIS TIME. WILL ASSESS LINE PLACEMENT BASED ON PATIENT'S NEED FOR COMFORT MEDICATIONS.
--- NOTE | 2021-07-30 05:43 | NUR ---
SHIFT SUMMARY PATIENT AWAKE MOST OF NIGHT. ORIENTED, USING CALL LIGHT APPROPRIATELY. PATIENT DOES PULL LINES, REMOVE GOWN, WRISTBANDS, ANYTHING UNFAMILIAR TO HIM. PICC LINE WAS PULLED PREVIOUSLY CHARTED AND PATIENT CONTINUED TO REMOVE COBAN AND GAUZE FROM PICC SITE. ID WRISTBAND REMOVED AND REPLACED. GOWN CONSISTENTLY REMOVED, PATIENT REQUESTED TO JUST BE IN DEPENDS. REMOVES STRAWS FROM WATER CUP, MULTIPLE STRAWS FOUND IN PATIENT'S BED. CELL PHONE AND WATCH ARE OFTEN FOUND IN SHEETS OF BED OR ON THE FLOOR. EACH TIME RN ENTERS ROOM PATIENT ANSWERS ORIENTATION QUESTIONS APPROPRIATELY AND DOES NOT REMEMBER REMOVING ITEMS STATED ABOVE. ICE CREAM WAS PROVIDED TWICE PER PATIENT'S REQUEST. STANDBY ASSIST TO COMMODE TO URINATE 3 TIMES. STEADY GAIT. PATIENT CALM, COOPERATIVE, FOLLOWS COMMANDS. REQUESTED A BREATHING TREATMENT ONE TIME, NO OTHER MEDICATIONS NEEDED OR REQUESTED. DID NOT REPLACE IV ACCESS DUE TO PATIENT CONTINUING TO REMOVE ITEMS AND PULL LINES OUT. WILL ADDRESS PO COMFORT MEDICATIONS NEEDED. AT THIS TIME PATIENT IS COMFORTABLE AND NOT REQUIRING ANY MEDICATIONS FOR PAIN, OR OTHER DISCOMFORTS. CALL LIGHT IN REACH AND BED ALARM ON.
--- NOTE | 2021-07-30 07:30 | NUR ---
ASSUMED CARE REPORT RECIEVED. PT IS SITTING UP IN BED AWAKE, ALERT, AND ORIENTED. PT FIDGETY, PULLING AT SHEETS AND WRIST BANDS. PT DENIES PAIN OR DISCOMFORT. REQUESTING ICE CREAM. PT ABLE TO REPOSITION SELF IN BED FOR COMFORT. WILL CONTINUE TO MONITOR.
--- NOTE | 2021-07-30 11:56 | NUR ---
Spiritual Care Visit. Pt. was alert and in bed and welcomed me for a visit. Pt. quickly verbalized his hospice status and affirm he was ready to "meet Barber"...and that he was ok with that. Listened empathetically to a life review. Explored the basis of his belief. Pt. displayed evidence of improved hope, though was unsettled about his and one son. Offered emoitonal support. Prayed with Pt. Pt. venralized gratitude for the visit. Pt. seems to be awaiting discharge to Home hospice.
--- NOTE | 2021-07-30 16:04 | NUR ---
Received referral from nurse healthcare educator (Nichole Sands) on 07/30/2021. Patient is to discharge Wednesday- 08/01/2021 with orders for hospice and family elected [facility]. Patient is being seen at [facility] by [facility] Outbound Sales Professional (Dr. Franz) who has determined that patient is hospice appropriate. Gathered supporting documentation for referral (face sheet, labs, imaging, progress notes, palliative care note, and H&P) and sent to [facility] band machine operator (Dav Benavidez) for review. Will attempt to meet with patient and family today to further discuss the above. Jackelin Calvin Referral Liaison
--- NOTE | 2021-07-30 17:03 | NUR ---
Pt denies pain at this time, planning to discharge home with hospice in the next few days with . No changes to care plan at this time.
--- NOTE | 2021-07-30 17:11 | NUR ---
SHIFT SUMMARY NO ACUTE CHANGES THIS SHIFT. PT HAS REMAINED AWAKE, ALERT, AND ORIENTED. PT WITH PERIODS OF CONFUSION/FORGETFULNESS. PT HAS DENIED PAIN OR DISCOMFORT THIS SHIFT. PT UP OUT OF BED MULTIPLE TIMES THIS SHIFT TO CHAIR AND BEDSIDE COMMODE WITH MINIMAL ASSISTANCE. PT WITH MULTIPLE LOOSE TO LIQUID BM'S THIS SHIFT. PT TAKING PO INTAKE WELL. WILL CONTINUE TO MONITOR AND REPORT OFF TO ONCOMING RN.
--- NOTE | 2021-07-30 19:10 | NUR ---
ASSUMPTION OF CARE PT LYING IN BED WATCHING TV. PT IS A&OX4, PARTICIPATES IN CONVERSATION AND VERBALIZES NEEDS. PT DID NOT EAT DINNER, DOES NOT WANT ANYTHING ELSE TO EAT. PT GIVEN WATER, PT HOLDS CUP AND DRINKS INDEPENDENTLY. DENTURES CLEANED AND PLACED IN CONTAINER. PT PROVIDED TOOTH BRUSH AND TOOTHPASTE TO CLEAN MOUTH AND REQUESTS TO DO SO INDEPENDENTLY. PT DENIES PAIN OR DISCOMFORT. APPEARS SOB WITH EXCERTION OF MOVING SELF AROUND AND DURING LONG CONVERSATIONS. PT DENIES ADDITIONAL NEEDS AT THIS TIME.
--- NOTE | 2021-07-30 21:31 | NUR ---
UPDATE PT UP TO BEDSIDE COMMODE WITH MINIMAL ASSISTANCE. VERY SMALL LOOSE BM AND URINE. BED LINENS AND ATTENDS CHANGED AT THIS TIME. COCCYX IS RED, SMALL AREA THAT IS OPEN AND SLIGHTLY BLEEDING. PT DENIES WANTING BANDAGE AND DENIES PAIN. PT GIVEN FRESH ICE WATER AND ASSISTED BACK IN BED. PT DENIES NEEDS AND REQUESTS TO SLEEP. LIGHTS DIMMED AND TV TURNED OFF.
--- NOTE | 2021-07-30 22:24 | NUR ---
PAIN PT C/O GENERALIZED PAIN AND FEELING RESTLESS. PT HAS IV PAIN MEDICATIONS, BUT NO LONGER HAS PERIPHERAL ACCESS. HOSPITALIST CALLED AND RECEIVED ORDER FOR TRAMADOL PO. PT MEDICATED PER EMAR. PT REPOSITIONED AND RESTING COMFORTABLY AT THIS TIME.
--- NOTE | 2021-07-31 00:12 | NUR ---
UPDATE PT CONTINUES TO FEEL RESTLESS AND C/O GENERALIZED PAIN THAT IS A 4/10. PT REPOSITIONED FOR COMFORT. PT GIVEN SODA AND MORE WATER.
--- NOTE | 2021-07-31 02:25 | NUR ---
PT UP TO BEDSIDE COMMODE MULTIPLE TIMES WITH MINIMAL ASSISTANCE. PT CONTINUES TO HAVE LOOSE BMS. PT DENIES PAIN OR DISCOMFORT. PT HAS BEEN SLEEPING ON AND OFF. OCCASIONALLY HAS PRODUCTIVE COUGH WITH MORSE SPUTUM.
--- NOTE | 2021-07-31 05:05 | NUR ---
UPDATE PT SLEPT FOR ABOUT AN HOUR. PT AWAKE NOW, REQUESTED COFFEE. GIVEN COFFEE AND MORE WATER. PT TOLERATING WELL. PT GIVEN DENTURES AND PT INDEPENDENLY APPLIES ADHESIVE AND PUTS THEM IN. CURRENTLY WATCHING TV, DENIES NEEDS AT THIS TIME.
--- NOTE | 2021-07-31 06:05 | NUR ---
SHIFT SUMMARY PT REMAINS ALERT AND ORIENTED. SLEPT ON AND OFF THROUGHOUT THE NIGHT. PT UP TO BEDSIDE COMMODE SEVERAL TIMES THIS SHIFT WITH MINIMAL ASSISTANCE NEEDED. MULTIPLE SMALL LOOSE BMS AND URINE. PT DRANK MULTIPLE CUPS OF FLUID THROUGHOUT SHIFT AND TOLERATED WELL. PT GIVEN WARM BLANKETS. PT CURRENTLY LYING IN BED WITH EYES CLOSED AND TV ON. CALL LIGHT WITHIN REACH.
--- NOTE | 2021-07-31 07:12 | NUR ---
ASSUMED CARE REPORT RECIEVED. PT IS RESTING IN BED AT THIS TIME. PT IS ALERT AND ORIENTED WHEN AWAKE. PT DENIES PAIN OR DISCOMFORT AT THIS TIME. WILL CONTINUE TO MONITOR.
--- NOTE | 2021-07-31 10:43 | NUR ---
Spiritual Care visit. Pt. was resting with minimal covers, but responded to me entering the room. Pt. verbalized that he had felt too warm for a couple of hours. Pt. is in comfort care and seemed unsettled about his not being present. Son is [id number]. Listened empathetically. Facilitated a life review. Read scriptures of encouragement. Pt. displayed evidence of peace and verbalized [facility] Pt. verbalized gratitude for the visit. I will monitor room in the event spouse arrives.
--- NOTE | 2021-07-31 11:54 | NUR ---
HOSPICE UPDATE FAMILY MEETING WITH YIMI DONE. PLANS FOR PT TO GO HOME WITH HOSPICE SET UP TOMORROW 08/01/21 IN THE MORNING. YIMI TO SEND NEW PRESCRIPTIONS TO [facility] TODAY FOR PT SPOUSE TO [facility] [employer] [facility] [place] TOMORROW. PT CONTINUES RESTING COMFORTABLY IN BED AT THIS TIME. WILL CONTINUE TO MONITOR.
--- NOTE | 2021-07-31 14:23 | NUR ---
Pt continues to look forward to going home with hospice tomorrow. He is alert, denies pain or distress. Appetite is fair. in visiting. No changes to care plan.
[2021-07-31 15:11] LABS: A/G RATIO 1.1 (0.7-1.7); ALPHA-1-GLOBULIN 0.2 g/dL (0.0-0.4); ALPHA-2-GLOBULIN 0.7 g/dL (0.4-1.0); BETA GLOBULIN 0.7 g/dL (0.7-1.3); GAMMA GLOBULIN 1.3 g/dL (0.4-1.8); GLOBULIN, TOTAL 2.9 g/dL (2.2-3.9); IMMUNOGLOBULIN A, QN, SERUM 366 mg/dL (61-437); IMMUNOGLOBULIN G, QN, SERUM 1219 mg/dL (603-1613); IMMUNOGLOBULIN M, QN, SERUM 40 mg/dL (15-143); M-SPIKE Not Observed g/dL (Not Observed); PROTEIN, TOTAL, SERUM 5.9 g/dL (6.0-8.5)
--- NOTE | 2021-07-31 17:05 | NUR ---
SHIFT SUMMARY NO ACUTE CHANGES. PT HAS REMAINED ALERT AND ORIENTED WHEN AWAKE. PT WITH SOME NAPS THROUGHOUT THE DAY. PT DENIES SOB. PT COMPLAINED OF SOME PAIN TO LOWER BACK THIS AFTERNOON. PT MED PER EMAR. PT UP OUT OF BED TO COMMODE MULTIPLE TIMES THIS SHIFT. PLANS FOR PT TO DISCHARGE HOME WITH HOSPICE TOMORROW MORNING. WILL CONTINUE TO MONITOR AND REPORT OFF TO ONCOMING RN.
--- NOTE | 2021-07-31 20:14 | NUR ---
ASSUMPTION OF CARE PT RESTING COMFORTABLY IN BED WITH EYES CLOSED. EASILY WAKENS WITH VERBAL STIMULI. DENIES PAIN OR DISCOMFORT AT THIS TIME. PT HAS CALL LIGHT, WATER AND BEDSIDE TABLES WITHIN REACH. DENIES ADDITIONAL NEEDS AT THIS TIME.
--- NOTE | 2021-08-01 00:11 | NUR ---
UPDATE PT GIVEN SODA, ICE CHIPS, WATER, AND PUDDING. PT'S DENTURES CLEANED AND GIVEN BACK TO PT. ATTENDS CHANGED DUE TO INCONTIENCE OF URINE. PT DENIES PAIN OR NAUSEA. PT CURRENTLY RESTING IN BED WITH EYES CLOSED.
--- NOTE | 2021-08-01 02:01 | NUR ---
UPDATE PT UP TO BEDSIDE COMMODE WITH MINIMAL ASSISTANCE. PT CONTINENT OF URINE, ATTENDS DRY. BED LINENS CHANGED AND PT GIVEN WARM BLANKETS. DENTURES REMOVED AND PLACED IN CUP. MEPILEX APPLIED TO COCCYX. PT HAVING 5/10 PAIN ON HIS TAILBONE AND LOWER BACK, MEDICATED PER EMAR. PT NOW RESTING IN BED WITH EYES CLOSED.
--- NOTE | 2021-08-01 05:43 | NUR ---
SHIFT SUMMARY PT SLEPT FOR MOST OF THE NIGHT, OCCASIONALLY WAKING UP TO WATCH TV. PT REMAINS ALERT AND ORIENTED. PT UP TO BEDSIDE COMMODE ONCE THIS SHIFT AND NEEDED MINIMAL ASSISTANCE. PT GIVEN DRINKS AND SNACKS THROUGHOUT NIGHT. PT CURRENTLY EATING ICE CREAM. PT EXPRESSES LOOKING FORWARD TO GOING HOME TODAY TO SEE HIS . PT DENIES PAIN OR DISCOMFORT AT THIS TIME.
--- NOTE | 2021-08-01 06:32 | NUR ---
PHONE CALL FROM [facility] SPOKE WITH [facility] ON THE PHONE WHO REQUESTS TRANSPORT AND DISCHARGE TO BE CANCELLED. [facility] EXPRESSES EXTREME CONCERN ABOUT BEING UNABLE TO PROPERLY CARE FOR PT AFTER DISCHARGE. PT STS "I WAS THERE FOR 3 HOURS YESTERDAY AND YOU GUYS DO MORE THAN I CAN". [facility] IS ALSO WORRIED ABOUT NURSES NOT COMING TO THE HOME TO HELP AND REQUESTS FOR HIM TO BE SENT TO A CARE FACILITY WHERE THEY CAN CARE FOR HIM. WILL REPORT TO ONCOMING RN TO SEE IF DISCHARGE PLANNING CAN ASSIST WITH NEW PLAN.
--- NOTE | 2021-08-01 07:00 | NUR ---
ASSUME CARE: I have assumed care of pt at this time.
[2021-08-01 08:11] LABS: ANTIGLOMERULAR BM AB 10 units (0-20)
[2021-08-01] MEDS ORDERED: ACET325 PO (09:36)
--- NOTE | 2021-08-01 11:06 | NUR ---
Spiritual care visit. Pt. was sitting up up in bed dozing when I entered. Pt. soon became alert. Pt. was unsettled about concerns of his . Pt. displayed evidence of anxiety about the unknowns of her condition, and why she would not be able to care for him at home. Offered emotional support and offered to facilitate a call to his spouse. Pt. verbalized gratitude. I will pursue any backround/family context from palliative care before I contact spouse at home.
--- NOTE | 2021-08-01 11:45 | NUR ---
Spiritual Care follow up. After consulting Palliative care, I contacted Pts. spouse by phone. Pt. had verbalized concern about his spouse, and displayed evidence of anxiety. Phone call with spouse was made, and message was relayed to pt. Pt. displayed evidence of reduced anxiety and verbalized gratitude Updated ICU nurse and palliative care about the conversation.
[2021-08-01 12:11] LABS: M-SPIKE, % Not Observed % (Not Observed); PROTEIN,TOTAL,URINE 15.9 mg/dL (Not Estab.)
--- NOTE | 2021-08-01 13:09 | NUR ---
Late Entry from 07/31/2021 at 1115: Met with patient and patient's (Sania Pineda) to further discuss hospice services and the election of [facility]. Patient and are agreeable to the above. Discussed what hospice is (reserved for patients with a terminal diagnosis with life expectancy of 6 months or less). Discussed that some patients exceed the 6 months expectancy and stay on service and some patients stabilize and come off hospice. Patient and verbalized understanding of the above. Discussed with patient and that hospice service focuses on quality of life at the end of life and that rather than measuring the quantity of days, the quality of those days would be measured. Discussed with patient and that with hospice service the goal would be to keep the patient out of the hospital and comfortable by managing symptoms at home. Patient and verbalized understanding. Discussed the people, prescriptions, and equipment of hospice. People- discussed the team of people and their roles (RNs, chaplains, therapists, LCSWs, CNAs, and volunteers) that would be there to support not only the patient but also their family during this time. Explained to the patient and that the team would be custom tailored to the patient and family's needs during this time. Patient and verbalized understanding. Prescriptions- discussed that we utilize a mail order [facility] ([facility] to provide medications related to the hospice diagnosis and for symptom management. All other medications that patient chose to stay on would be patient's and/or patient's family's responsibility to provide and pay for. Patient and verbalized understanding. Discussed that upon discharge patient would be given three prescriptions, one for morphine 20mg/mL #30mL (0.25mL - 1mL PO/SL Q1H PRN SOB/pain), one for lorazepam 0.5mg #20 (1 - 2 PO Q4H PRN anxiety), and one for hyoscyamine 0.125mg SL tablets #30 (1 SL Q2H PRN secretions). Explained to the patient and that as patient would not yet be admitted to hospice service at the time of discharge those prescriptions would be patient/patient's family's responsibility to fill and pay for. Patient and verbalized understanding. Equipment- discussed with patient and that we contract through [employer] to provide DME such as hospital beds, commodes, etc. to patient. Wrote order for DME (hospital bed, full rails, over bed table, pump & pad, oxygen at 1-5 LPM, bedside commode, shower chair, transfer bench, and wheelchair) and sent to [facility] for delivery on Wednesday- 08/01/2021. Discussed with patient and that [facility] does not supply the sheets for the beds. Discussed that one of two options can be used- either a twin extra-long fitted sheet OR a schneider sized flat sheet wrapped around the pump & pad. Patient and verbalized understanding. Discussed with patient and that once patient was admitted onto hospice services the goal would be for them to contact us ([facility]) over contacting 911 or presenting back to the hospital/ED. Patient and verbalized understanding. Discussed the tentative discharge plans for Wednesday- 08/01/2021 at 1030 with preferred mode of transportation- medical transport via gurney. Explained to patient and that I would arrange transportation for patient. Patient and verbalized understanding. Offered a chance for patient and to ask questions regarding the above of which there were none. Will continue to monitor and follow as appropriate for discharge. Jackelin Calvin Referral Liaison
--- NOTE | 2021-08-01 13:10 | NUR ---
Late Entry from 08/01/2021 at 0830: Patient is to discharge at 1100 with orders for hospice. Contacted [facility] ([facility] to arrange gurney transport to patient's residence. Pick-up at 1100 will be provided by [facility]. Faxed copy of face sheet, PCS form, VTS form, and DNR status to [facility] VTS office and [facility] office per protocol. Placed copies of the above in nurse fast food server for patrol driver. Requested discharge orders from hospitalist (Dr. Franz). Provided hard copy prescriptions for morphine and lorazepam to [facility] via fax and in person on 08/01/2021. Faxed copies of discharge order and med list to [facility]. No further interventions required. Jackelin Calvin Referral Liaison
--- NOTE | 2021-08-01 13:13 | NUR ---
Late Entry from 08/01/2021 at 0850: Received notification from palliative care RN (Chava Wells) that patient's had contacted [facility] at approximately 0630 stating she would not be able to care for patient at home. Care management notified of the above by ICU bedside RN and palliative care. Contacted [facility] to put hold on delivery of equipment and VTS office ([facility]) to cancel transport. At this time it is unknown when patient will discharge and where to. Will continue to monitor and follow as appropriate for discharge. Jackelin Calvin Referral Liaison
[2021-08-01 14:11] LABS: ANA DIRECT Negative (Negative); ANTIMYELOPEROXIDASE (MPO) ABS <9.0 U/mL (0.0-9.0); ANTIPROTEINASE 3 (PR-3) ABS <3.5 U/mL (0.0-3.5); ATYPICAL PANCA <1:20 titer (Neg:<1:20); CYTOPLASMIC (C-ANCA) <1:20 titer (Neg:<1:20); PERINUCLEAR (P-ANCA) <1:20 titer (Neg:<1:20)
--- NOTE | 2021-08-01 16:10 | NUR ---
pt fidgeting and restless and frail. Staff informed me that called and was tearfull that she cannot care for him. Called she was very tearfull and stated she has some cardiac issues and with the stress of loosing him she is not feeling well. Theraputic conversation with her and reassured her we will find a way for him to get the care he needs. Praised her and advised she needs to do some self care. She is very distrauhgt. Hospice and care managers updatated
--- NOTE | 2021-08-01 21:18 | NUR ---
PT CARE AND COMFORT STATUS. PT ALERT AND ORIENTED. ACKNOWLEDGES THAT HE IS FRUSTRATED AND DISAPPOINTED THAT HE WAS NOT ABLE TO GO HOME THIS MORNING. DISCUSSED PT'S FEELINGS. VALIDATED HIS EXPRESSIONS OF FEELINGS. FULL BEDBATH DONE FOR PT. PT WAS MEDICATED WITH TRAMADOL 50 MG ONCE FOR COMPLAINTS OF BACK AND GENERAL PAIN. PT STATES THAT HE TAKES 100 MG AT HOME. DID OFFER FENTANYL FOR BREAKTHROUGH PAIN WHICH PT STATES HE WOULD LIKE TO STAY WITH ORAL PAIN MEDS FOR THE TIME BEING. PT DOES NOT HAVE IV ACCESS AT THIS TIME. WILL CONTINUE TO MONITOR PT, AND PROVIDE COMFORT WHERE NEEDED.
--- NOTE | 2021-08-02 02:13 | NUR ---
PT ASKS TO HAVE A REYES CATHETER PLACED. THIS DONE FOR PT. WITH CARE AND COMFORT, THIS HAS MADE PT MUCH MORE COMFORTABLE. PT HAS BEEN AWAKE MOST OF THE NIGHT. DOES HAVE PAIN BREAKTHROUGH WHEREAS HE HAS REQUESTED MORE MEDS. CALL MADE TO DR SOUSA FOR ADDITIONAL PAIN MANAGEMENT. ORDERS RECEIVED.
--- NOTE | 2021-08-02 05:50 | NUR ---
PT RECEIVES 10MG OXYCODONE FOR PAIN IN BACK AND JOINTS. PT HAS BEEN RESTING SINCE. HAD BEEN VERY RESTLESS UNTIL HE RECEIVED DOSE OF OXYCODONE. HAD CALLED DR SOUSA FOR PRN PAIN MEDICATION. PT STATES HE WISHES TO GO WITH ORAL PAIN MEDICATION INSTEAD OF IV. WILL CONTINUE TO MONITOR PT, AND WILL REPORT OFF TO ONCOMING RN.
--- NOTE | 2021-08-02 07:00 | NUR ---
ASSUME CARE: I have assumed care of pt. At this time he is resting quietly in bed.
--- NOTE | 2021-08-02 17:01 | NUR ---
No changes needed to pt's care at this time. Palliative care to remain available.
--- NOTE | 2021-08-02 20:00 | NUR ---
ASSUMED CARE OF PT AT 1915. REPORT RECEIVED. PT PRESENTS IN BED. IN NO DISTRESS. SLEEPING AT THIS TIME. WILL REVIEW CHART AND PLAN OF CARE FOR THIS PT.
--- NOTE | 2021-08-03 03:37 | NUR ---
PT AWAKENS DURING ONE OF THE TURNS IN BED, AND STATES THAT HE IS HAVING GOOD PAIN CONTROL FROM THE DURAGESIC PATCH. NO BREAKTHROUGH PAIN TO NOTE. PT IN NO DISTRESS.
--- NOTE | 2021-08-03 10:25 | NUR ---
ASSUME CARE: I assumed care of this pt at 0700.
--- NOTE | 2021-08-03 18:50 | NUR ---
SHIFT SUMMARY: Pt awake and interactive for much of the day. He prefers ice cream cups and coffee over the meals he receives. Pt tolerated turns well. Chand still in place for comfort.
--- NOTE | 2021-08-03 21:43 | NUR ---
ASSUMED PT CARE AT 1915 PT ALERT AND ORIENTED AND ABLE TO MAKE HIS NEEDS KNOWN. C/O 5/10 PAIN TO BLE'S. PT MEDICATED WITH TRAMADOL PER ORDERS. PT REQUESTED IV PAIN MEDS D/T IT BECOMING MORE AND MORE DIFFICULT FOR HIM TO SWALLOW SAFELY. PT DIDN'T HAVE ANY IV ACCESS; HOWEVER, EDUCATED PT THAT WE COULD ATTEMPT PILLS IN PUDDING, WHICH HE WAS ABLE TO SWALLOW WITHOUT ANY ISSUE. ASKED PT IF HE WOULD LIKE TO BE REPOSITIONED AND HE STATED HE WAS COMFORTABLE. ORAL CARES ALSO DECLINED. CATHETER CARES PERFORMED. PT STATED HE WOULD UTILIZES CALL LIGHT IF HE WAS UNCOMFORTABLE AND WANTED REPOSITIONED. HE STATED HE WAS JUST AWAITING HIS NEXT LIFE AND IS DONE IN THIS ONE. STATED IT WAS UNFORTUNATE HOW LONG IT WAS TAKING. ASKED IF PATIENT WAS COMFORTABLE THAT WAS THE MAIN PRIORITY; PT NODDED AND STATED HE WAS COMFORTABLE AND WITHOUT SUFFERING AT THIS TIME. WILL CONTINUE TO MONITOR.
--- NOTE | 2021-08-04 04:29 | NUR ---
END OF SHIFT SUMMARY PT CONTINUED TO CALL APPROPRIATELY NEEDED. MEDICATED X2 WITH TRAMADOL. WHEN ASKED WHERE PT'S PAIN WAS HE STATED "IT WAS HARD TO BREATHE" EDUCATED ON MEDICATING WITH ROXONAL INSTEAD. PT STATED HE JUST NEEDED THE PILLS. SWALLOWED ADEQUATELY WHOLE IN PUDDING. HOWEVER, ALSO OBTAINED ROXONAL AND MEDICATED PER ORDERS. PT IS SLEEPING/RESTING COMFORTABLY AT THIS TIME. CALL LIGHT WITHIN REACH.
--- NOTE | 2021-08-04 08:41 | NUR ---
ASSUMED CARE OF PATIENT: RESTING IN BED, COMPLAINS OF REPORTED SOB, RR WNL, COMPLAINS OF 5/10 PLEURITIC PAIN ASSOCIATED W/BREATHING, PATIENT GIVEN 5MG ROXANOL WITH IMPROVEMENT IN SYMPTOMS, INDEPENDNET WITH FOOD/ICE CREAM, WILL CONTINUE TO MONITOR.
--- NOTE | 2021-08-04 12:48 | NUR ---
updated patients on plan of care.
--- NOTE | 2021-08-04 16:08 | NUR ---
Comfort Care: Pt is having some dyspnea, and is asking the nurse for roxanol when he done: it seems to work very well for him. Plan is for him to go home with hospice. No changes to care at this time.
--- NOTE | 2021-08-04 17:04 | NUR ---
SOMNOLENT BUT ALERT WHEN REQUESTING MEDICATIONS/FOOD, FOLLOWS COMMANDS, COMPLAINS OF PAIN WITH BREATHING, ROXANOL 5MG X2 GIVEN, POOR DIET THIS SHIFT, ICE CREAM REQUESTS ONLY, VISITED IN ROOM, WILL CONTINUE TO MONITOR AND REPORT TO NIGHT RN.
--- NOTE | 2021-08-04 18:50 | NUR ---
ARRIVAL/SHIFT SUMMARY PT ARRIVED TO THE FLOOR FROM ICU IN STABLE CONDITION, TRANSFERRED TO NEW BED IN THE ROOM, LINENS CHANGED OUT FOR CLEAN ONES, MEPILEX TO PT COCCYX PRIOR ONE WAS SOILED/WET, PT DENIED ANY NEEDS AT TIME OF ARRIVAL. NO ACUTE EVENTS THIS SHIFT, CALL LIGHT IN REACH, WILL CTM AND REPORT TO NOC RN.
--- NOTE | 2021-08-04 18:59 | NUR ---
ARRIVAL TO MEDICAL FLOOR PT ARRIVED FROM ICU TO ROOM 330 AT APPROXIMATELY 1800, COMFORT CARE ASSESSMENT COMPLETED, REPOSITIONED AND FULL LINEN CHANGE PERFORMED AT THAT TIME.
--- NOTE | 2021-08-05 06:27 | NUR ---
PATIENT IS COMFORT CARE AT THIS TIME. HE SLEPT MAJORITY OF THE NIGHT AND WAS IN NO DISTRESS. HE WAS GIVEN 1 DOSE OF TRAMNADOL AT 1999. WHEN ASKED IF HE NEEDED ANYTHING ELSE THIS MORNING, HE STATED HE DID NOT. HE WAS REPOSITIONED A FEW TIMES. CURRENTLY HAS PILLLOWS UNDER HIS BUTTOCKS TO RELEIVE PRESSURE. REYES PATENT. PUREED DIET WITH MANY INSTRUCTIONS FOR FEEDING. BLE COOL TO TOUCH. DIMINISHED LUNG SOUNDS. WILL DC HOME WITH HOSPICE IN THE NEXT FEW DAYS.
--- NOTE | 2021-08-05 11:06 | NUR ---
Spiritual Care visit. Pt. was resting in bed but responded when I entered the room. Pt. was unsettled about his condition and is ready to . Listened Empathetically. Pt. verbalized if I could help him. Provided inspirational teaching. Pt. verbalized agreement and improved hope. Pt. verbalized concerns about his son, who is out of state. Offered to attempt to reach son through pts. . Pt. verbalized gratitude for the attempt. I will seek make this family connection.
--- NOTE | 2021-08-05 11:26 | NUR ---
Contacted Pts. spouse by phone. Relayed message that pt. would like to have his son call him. Gave hospital # and room #. Pts. spouse verbalized gratitude.
--- NOTE | 2021-08-05 11:35 | NUR ---
CASE CONFERENCE NOTE Spoke with pt's RN for an update and Katalina BAEZ. t/c to pt's to give update re: s/s management. She was unaware that she could come visit so we discussed what was needed to visit. Screener and RN notified that coming in this afternoon to visit pt. Darden to update on d/c planning progress if possible while is here.
--- NOTE | 2021-08-05 12:15 | NUR ---
GAVE BATH AND SHAMPOO HAIR WITH NURS AND CHANGED LINENS
--- NOTE | 2021-08-05 15:18 | NUR ---
COMFORT CARE PATIENT RESTING IN BED. PATIENT COMPLAINING OF PAIN IN THROAT. MEDICATED PER SEP. PATIENT'S CAME TO VISIT. PATIENT RECEIVED BED BATH. WILL CONTINUE TO MONITOR.
--- NOTE | 2021-08-05 18:28 | NUR ---
SHIFT SUMMARY PATIENT RESTING IN BED. PATIENT IS HAVING INCREASED THROAT PAIN AND DIFFICULTY SWALLOWING. PATIENT REQUESTED PAIN MEDICATION BUT HAD A DIFFICULT TIME TAKING IT. REPOSITIONED Q2H AND GAVE PATIENT BED BATH TODAY. PATIENT SUCKS ON ICE CHIPS T/O SHIFT AND TAKES SIPS OF WATER. PATIENT'S CAME TO VISIT TODAY. PATIENT COMFORTABLE AND WILL CONTINUE TO MONITOR.
--- NOTE | 2021-08-05 20:03 | NUR ---
PT C/O CONTINUED MOUTH PAIN. THIS RN OBSERVED DIFFUSE WHITE PATCHES TO THROAT AND ROOF OF MOUTH. WILL ALERT HOSPITALIST AND MEDICATE FOR PAIN PRN PER EMAR. PT DENIES FURTHER NEEDS/COMPLAINTS AND IS PLEASANT/COOPERATIVE W/COMFORT CARE MEASURES BEING MAINTAINED.
--- NOTE | 2021-08-06 08:00 | NUR ---
SUMMARY: PT A/OX4, IS PLEASANT AND COOPERATIVE W/CARE AND SPECIFIES NEEDS W/STAFF IN ROOM. HE REMAINS ON BEDREST W/TURN SCHEDULE MAINTAINED. COMFORT MEASURES IN PLACE. REYES PATENT/DRAINING CONCENTRATED OMEGA/ORANGE URINE. MOUTH PAIN PERSISTS AND THIS RN OBSERVED ORAL THRUSH. ORAL NYSTATIN RX OBTAINED W/FIRST DOSE RECIEVED. TRAMADOL PROVIDED PRN X2 DOSES FOR IMPROVED CHRONIC PAIN CONTROL. LEGS ELEVATED IN BED AND REMAIN SWOLLEN, DISCOLORED AND COLD. NO ACUTE CHANGES. WCTM AND REPORT TO DAY RN.
--- NOTE | 2021-08-06 13:11 | NUR ---
Spiritual care visit. Pt. is awake in bed. Pt. welcomes my visit. Pt. displays evidence of discomfort. Pt. verbalizes oral/throat pain. Pts. hands are increasingly blue. Because of oral pain, and his upper dentures removed, communication is difficult for pt. I listened as best I could to him empathetically. Pt. verbalized desire to see son, but understands the nature of distance that separates them. Sat with pt. and explored faustina and beliefs. Pt. verbalized (again) that he is ready to . Provided a calming presence and provided pastoral branch credit counselor. Prayed with pt. Pt. verbalized gratitude for the visit.
--- NOTE | 2021-08-06 14:58 | NUR ---
Spiritual Care visit. At the request of the pt. and floor staff I returned. I had been with pt. in the a.m. Pt. was sitting up, and displayed evidence of much less pain (oral pain.) Pt. seemed unsettled and it took a while to understand. Facilitated a life review and pt. verbalized a regret for not living his faustina well. Explored issues of faustina anf beliief. Spent more time exploring life review. Pt. verbalized remorse for lost years. Validated pts. concern. Pastoral end-of-life gambling counsellor was given. Pt. displayed evidence of understanding and verbalized gratitude for the time we have spent together. Prayed with pt.
--- NOTE | 2021-08-06 18:12 | NUR ---
pt had theraputic time today with chaplian and volunteer. will check on .
--- NOTE | 2021-08-06 19:47 | NUR ---
END OF SHIFT SUMMARY: PATIENT DROWSY THROUGHOUT THE DAY. PATIENT AWAKES TO HIS NAME AND IS ABLE TO ANSWER QUESTIONS. SPEECH IS GARBLED. PATIENT REPORTED HIGH PAIN IN HIS HANDS AND FEET TODAY. DISCUSSED WITH DR. BENZ, NEW ORDERS RECEIVED AND ENTERED. PATIENT MEDICATED PER PRNS THROUGHOUT THE SHIFT. PATIENT VISITED BY WASTE COLLECTOR. PATIENT REPORTED THAT HE GREATLY APPRECIATED THE VISIT AND WOULD LIKE ANOTHER VISIT WHEN OFFERED. NOTIFIED WASTE COLLECTOR WHO WAS ABLE TO VISIT AGAIN WITH THE PATIENT. NOTED A DECLINE IN ABILITY TO SWALLOW THROUGHOUT THE DAY. PATIENT DENIES APPETITE OTHER THAN WATER FOR MOST OF THE SHIFT. PATIENT'S AT BEDSIDE TODAY TO COMPLETE [facility]. PER CARE MANAGEMENT, THE PATIENT [facility].
--- NOTE | 2021-08-07 06:25 | NUR ---
SHIFT SUMMARY PATIENT ALERT AND ORIENTED. MEDICATED PER EMAR FOR PAIN. PROTECTIVE MEPILEX PLACED OVER BOTH OF PATIENT'S ELBOWS. NO ACUTE ISSUES NOTED. BED IN LOWEST POSITION WITH WHEELS LOCKED AND ALARM ON. CALL LIGHT WITHIN REACH. REPORT GIVEN TO ONCOMING RN.
[2021-08-07 09:12] LABS: Influenza A, PCR NEGATIVE (NEGATIVE); Influenza B, PCR NEGATIVE (NEGATIVE); Resp Syncytial Virus, PCR NEGATIVE (NEGATIVE); SARS-Cov-2 (COVID-19) PCR, MMC NEGATIVE (NEGATIVE)
[2021-08-07] MEDS ORDERED: ONDA4ODT MM (09:24)
[2021-08-07] MEDS ORDERED: [UNRECOGNIZED DRUG - CODE] (09:56)
[2021-08-07] MEDS ORDERED: MORP20L SL (09:56)
[2021-08-07] MEDS ORDERED: LORA2L PO (09:57)
[2021-08-07] MEDS ORDERED: ATROPINE SULFATE2 M1 PO (09:58)
[2021-08-07] MEDS ORDERED: FENTANYL1 EA14 TOP (09:58)
[2021-08-07] MEDS ORDERED: Acetaminophen650 M1 PO (09:59)
--- NOTE | 2021-08-07 10:19 | NUR ---
Spiritual Care visit. Was present when transport was loading pt. for discharge to [facility] [facility]. Pastorally encouraged Pt. Prayed with pt. while on the gurney.
--- NOTE | 2021-08-07 11:00 | NUR ---
DISCHARGE PT DISCHARGED TO [facility], REPORT CALLED TO MACEY JUAREZ
== END 2021-08-07 10:20 | disposition hospice, inpatient (51) | DRG 291 ==
LOC: ER 06:52 → MEDS 11:19 → ERHOLD 11:19 → ICUW 11:19 → MEDS 15:31 → ICUW 07-26 09:09 → MEDS 08-04 18:05
PROVIDERS: Emergency Medicine; Family Medicine; Hospitalist; Internal Medicine; Internal Medicine Critical Care Medicine; Internal Medicine Nephrology; ADMIT Internal Medicine
PROC: 3E033XZ Introduction of Vasopressor into Peripheral Vein, Percutaneous Approach (ICD-10-PCS; principal; 2021-07-26)
DX: I50.23 Acute on chronic systolic (congestive) heart failure (principal); J96.01 Acute respiratory failure with hypoxia; R57.0 Cardiogenic shock; Z66 Do not resuscitate; Z51.5 Encounter for palliative care; E43 Unspecified severe protein-calorie malnutrition; J96.02 Acute respiratory failure with hypercapnia; G93.41 Metabolic encephalopathy; N17.9 Acute kidney failure, unspecified; N18.4 Chronic kidney disease, stage 4 (severe); E87.1 Hypo-osmolality and hyponatremia; E87.2 Acidosis; I42.8 Other cardiomyopathies; M62.82 Rhabdomyolysis; G93.1 Anoxic brain damage, not elsewhere classified; Z20.822 Contact with and (suspected) exposure to COVID-19; K72.90 Hepatic failure, unspecified without coma; J43.9 Emphysema, unspecified; E86.9 Volume depletion, unspecified; E87.6 Hypokalemia; E83.51 Hypocalcemia; Z68.20 Body mass index [BMI] 20.0-20.9, adult; E78.5 Hyperlipidemia, unspecified; E16.2 Hypoglycemia, unspecified; E87.5 Hyperkalemia; I25.10 Atherosclerotic heart disease of native coronary artery without angina pectoris; I27.21 Secondary pulmonary arterial hypertension; I08.2 Rheumatic disorders of both aortic and tricuspid valves; I77.89 Other specified disorders of arteries and arterioles; I48.0 Paroxysmal atrial fibrillation; Z98.890 Other specified postprocedural states; Z87.891 Personal history of nicotine dependence; Z88.1 Allergy status to other antibiotic agents; Z95.0 Presence of cardiac pacemaker; Z95.1 Presence of aortocoronary bypass graft; Z88.8 Allergy status to other drugs, medicaments and biological substances; Z88.2 Allergy status to sulfonamides; Z79.899 Other long term (current) drug therapy; Z79.52 Long term (current) use of systemic steroids; Z91.018 Allergy to other foods
CPT/HCPCS: 0241U; 36415; 36569; 36600; 51702; 71045; 71250; 74176; 76705; 80048; 80053; 81001; 82248; 82330; 82550; 82784; 82803; 82947; 83516; 83520; 83605; 83735; 83880; 84100; 84156; 84165; 84166; 84484; 84550; 85025; 85027; 85379; 85520; 85610; 85730; 86037; 86038; 86334; 86335; 86704; 86708; 86803; 87086; 87340; 92610; 93005; 93010; 93306; 94640; 94644; 94760; 94762; 96374; 96375; 99285-25; A9270; C1751; C9113; J0610; J1170; J1250; J1815; J1940; J2060; J2405; J2930; J3010; J7030; J7050; J7060; J7070; J7120